=== PATIENT | female | born 1945 | race Caucasian/White ===

== ENCOUNTER → 2016-03-01 | Outpatient (CLI) | payer MEDICARE ==
--- NOTE | 2016-03-01 10:56 | CTL ---
EXAMINATION TYPE: CT Low Dose Lung DATE OF EXAM ORDERED: 03/01/2016 10:06 AM COMPARISON: None HISTORY: Long-term tobacco use. Lung cancer screening CT DLP: 52.[address] CTDI: 1.6 mGy Automated exposure control for dose reduction was used. SCREENING VISIT: Initial study COMPARISON: None TECHNIQUE: Low dose computed tomography scan was performed through the chest at 1 mm thick sections a nd reconstructed images in the coronal plane at [address] DIAGNOSTIC QUALITY: Satisfactory FINDINGS: LUNG NODULES: None. No greater than 4 mm noncalcified nodules. 3 mm calcified nodule periphery left u pper lobe is noted on axial image 49. Pleural-based curvilinear consolidation measuring 12 x 7 mm on axial image 187 favors focal atelectas is. LUNGS: COPD: Severity: Mild to moderate Fibrosis: Severity: Mild scattered areas of fibrosis most pronounced in the bases and apices are seen . Lymph nodes: No greater than 1 cm adenopathy is present. Other findings: No additional significant finding is seen. BILATERAL PLEURAL SPACE: Effusion: None Calcification: Some thin calcified plaques are seen in lung apices bilaterally Thickening: Mild to minimal biapical pleural thickening Pneumothorax: None HEART: Heart Size: Upper limits of normal Coronary calcification: Moderate three-vessel Pericardial effusion: None Great vessels: There is moderate calcified plaque most prominent in the ascending aorta. Ascending ao rta measures 3.3 x 3.1 cm diameter on axial image 114. Slight ectasia to the descending aorta is pres ent. Mild to moderate eccentric noncalcified plaque is likely present near image 218. Ascending aorta measures up to 3.1 cm in AP diameter at this level on image 218. OTHER FINDINGS: Upper abdomen: No significant findings seen. Bony thorax: Mild multilevel spurring in thoracic spine is noted. Supraclavicular region: No significant finding is seen. Other: No additional significant finding is noted. IMPRESSION: No suspicious parenchymal nodule or mass is identified. FOLLOW UP CT CHEST RECOMMENDATION: Annual low-dose lung screening CT. CT LUNG RAD: Lung-Rad 1 Negative
== END | disposition home or self-care (01) ==
LOC: RADCTMAIN 09:40
PROVIDERS: ATTEND Family Medicine
DX: Z12.2 Encounter for screening for malignant neoplasm of respiratory organs (principal); Z87.891 Personal history of nicotine dependence

== ENCOUNTER → 2017-02-18 | Outpatient (CLI) | payer MEDICARE ==
--- NOTE | 2017-02-22 09:14 | MM ---
Reason for exam: screening (asymptomatic). Last mammogram was performed 1 year and 1 month ago. History: Patient is postmenopausal and history of other cancer. Family history of breast cancer in paternal cousin and breast cancer in paternal cousin at age 50. Physical Findings: A clinical breast exam by your physician is recommended on an annual basis and results should be correlated with mammographic findings. MG 3D Screening Mammo W/Cad Bilateral CC and MLO view(s) were taken. Prior study comparison: February 03, 2016, bilateral MG 3d screening mammo w/cad. November 22, 2014, bilateral MG diagnostic mammo w CAD [facility]. The breast tissue is heterogeneously dense. This may lower the sensitivity of mammography. No suspicious abnormality. No significant changes when compared with prior studies. ASSESSMENT: Negative, BI-RAD 1 RECOMMENDATION: Routine screening mammogram of both breasts in 1 year.
== END | disposition home or self-care (01) ==
LOC: RADMAMWWP 16:43
PROVIDERS: ATTEND Obstetrics & Gynecology
DX: Z12.31 Encounter for screening mammogram for malignant neoplasm of breast (principal)
CPT/HCPCS: 77063; G0202

== ENCOUNTER → 2018-04-25 | Outpatient (CLI) | payer MEDICARE ==
--- NOTE | 2018-04-26 11:40 | MM ---
Reason for exam: screening (asymptomatic). Last mammogram was performed 1 year and 2 months ago. History: Patient is postmenopausal and history of other cancer. Family history of breast cancer in paternal cousin and breast cancer in paternal cousin at age 50. Physical Findings: A clinical breast exam by your physician is recommended on an annual basis and results should be correlated with mammographic findings. MG 3D Screening Mammo W/Cad Bilateral CC and MLO view(s) were taken. Prior study comparison: February 18, 2017, bilateral MG 3d screening mammo w/cad. February 03, 2016, bilateral MG 3d screening mammo w/cad. The breast tissue is heterogeneously dense. This may lower the sensitivity of mammography. Asymmetric breast tissue left subareolar position, stable. There is no discrete abnormality. ASSESSMENT: Negative, BI-RAD 1 RECOMMENDATION: Routine screening mammogram of both breasts in 1 year.
== END | disposition home or self-care (01) ==
LOC: RADMAMWWP 09:51
PROVIDERS: ATTEND Obstetrics & Gynecology
DX: Z12.31 Encounter for screening mammogram for malignant neoplasm of breast (principal); Z80.3 Family history of malignant neoplasm of breast
CPT/HCPCS: 77063; 77067

== ENCOUNTER → 2018-05-02 | Outpatient (CLI) | payer MEDICARE ==
--- NOTE | 2018-05-02 15:15 | BD ---
EXAMINATION TYPE: Axial Bone Density DATE OF EXAM: 05/02/2018 CLINICAL HISTORY: Height: 60.5 Weight: 120 FRAX RISK QUESTIONS: Alcohol (3 or more units per day): no Family History (Parent hip fracture): no Glucocorticoids (More than 3mos): no (Ex: prednisone, prednisolone, methylprednisolone, dexamethasone, and hydrocortisone). History of Fracture in Adulthood: no Secondary Osteoporosis: 1. Type 1 Diabetes: no 2. Hyperthyroidism: no 3. Menopause before 45: no 4. Malnutrition: no 5. Chronic liver disease: no Rheumatoid Arthritis: no Current Tobacco Use: yes RISK FACTORS HISTORY OF: Family History of Osteoporosis: not that patient is aware Active: no Diet low in dairy products/other sources of calcium: no Postmenopausal woman: yes Take estrogen and/or progesterone medications: no Lost more than 2 inches in height since high school: no Frequent falls: no Poor Health: no Hyperparathyroidism: no Adrenal Insufficiency: no MEDICATIONS: Thyroid Medications: no Osteoporosis Medications: no Additional Medications: cholesterol meds Additional History: EXAM MEASUREMENTS: Bone mineral densitometry was performed using the Etable System. Bone mineral density as measured about the Lumbar spine is: ----- L1-L4(G/cm2): 1.003 T Score Values are as follows: ----- L2: -2.0 ----- L3: -1.2 ----- L4: -0.8 ----- L1-L4: -1.5 Bone mineral density not previously done at this facility; previously done at physician office Bone mineral density about the R hip (g/cm2): 0.739 Bone mineral density about the L hip (g/cm2): 0.689 T Score values are as follows: -----R Neck: -2.2 -----L Neck: -2.5 -----R Total: -2.1 -----L Total: -2.2 Bone mineral density not previously done at this facility; previously done at physician office IMPRESSION: Osteopenia about the lumbar spine and bilateral femoral. NOTE: T-SCORE=SD OF THE YOUNG ADULT MEAN.
== END | disposition home or self-care (01) ==
LOC: RADBDWWP 13:14
PROVIDERS: ATTEND Family Medicine
DX: M85.852 Other specified disorders of bone density and structure, left thigh (principal); M85.851 Other specified disorders of bone density and structure, right thigh; M85.88 Other specified disorders of bone density and structure, other site
CPT/HCPCS: 77080

== ENCOUNTER → 2018-05-22 | Outpatient (CLI) | payer MEDICARE ==
--- NOTE | 2018-05-22 13:07 | CTL ---
EXAMINATION TYPE: CT Low Dose Lung DATE OF EXAM ORDERED: 05/22/2018 HISTORY: Personal history tobacco use. Lung cancer screening CT DLP: [address] CTDI: 1.88 mGy Automated exposure control for dose reduction was used. SCREENING VISIT: 2 COMPARISON: Prior exam 03/01/2016 TECHNIQUE: Low dose computed tomography scan was performed through the chest at 1 mm thick sections a nd reconstructed images in the coronal plane at [address] DIAGNOSTIC QUALITY: Satisfactory FINDINGS: LUNG NODULES: Present. Stable calcified subpleural left upper lobe nodule LUNGS: COPD: Severity: Moderate Fibrosis: Severity: Mild stable Lymph nodes: Not enlarged Other findings: None RIGHT PLEURAL SPACE: Effusion: None Calcification: None Thickening: None Pneumothorax: None LEFT PLEURAL SPACE: Effusion: None Calcification: None Thickening: None Pneumothorax: None HEART: Heart Size: Normal Coronary calcification: Present, mild Pericardial effusion: None OTHER FINDINGS: Upper abdomen: Unremarkable Bony thorax: Stable Supraclavicular region: Unremarkable Other: Aortic calcification is present similar to prior exam IMPRESSION: Stable, benign FOLLOW UP CT CHEST RECOMMENDATION: [address] LUNG RAD: 2
== END | disposition home or self-care (01) ==
LOC: RADCTMAIN 12:27
PROVIDERS: ATTEND Family Medicine
DX: Z12.2 Encounter for screening for malignant neoplasm of respiratory organs (principal); Z87.891 Personal history of nicotine dependence

== ENCOUNTER → 2018-07-06 | Outpatient (CLI) | payer MEDICARE ==
[2018-07-06 08:43] LABS: Basophils # (A) 0.1 k/uL (0-0.2); Basophils % (A) 1 %; Eosinophils # (A) 0.1 k/uL (0-0.7); Eosinophils % (A) 2 %; HCT 47.5 % (34.0-46.0); HGB 15.3 gm/dL (11.4-16.0); Lymphocytes # (A) 2.4 k/uL (1.0-4.8); Lymphocytes % (A) 36 %; MCH 30.5 pg (25.0-35.0); MCHC 32.3 g/dL (31.0-37.0); MCV 94.5 fL (80.0-100.0); Mean Platelet Volume 8.5; Monocytes # (A) 0.4 k/uL (0-1.0); Monocytes % (A) 7 %; Neutrophils # (A) 3.6 k/uL (1.3-7.7); Neutrophils % (A) 53 %; Platelet Count 230 k/uL (150-450); RBC 5.03 m/uL (3.80-5.40); RDW 12.4 % (11.5-15.5); WBC 6.9 k/uL (3.8-10.6)
[2018-07-06 16:41] LABS: Albumin 4.4 g/dL (3.80-4.90); Albumin/Globulin Ratio 2.59 (1.60-3.17); Anion Gap 5.3 mmol/L (4.00-12.00); Calcium 9.4 mg/dL (8.7-10.3); Carbon Dioxide 28.7 mmol/L (21.6-31.8); Globulin 1.7 g/dL (1.6-3.3); Potassium 4.4 mmol/L (3.5-5.5); Total Bilirubin 0.8 mg/dL (0.3-1.2); Total Protein 6.1 g/dL (6.2-8.2)
[2018-07-06 16:50] LABS: T4, Free (Free Thyroxine) 1.1 ng/dL (0.80-1.80)
== END | disposition home or self-care (01) ==
LOC: LABWHC1 08:06
PROVIDERS: ATTEND Internal Medicine Cardiovascular Disease
DX: Z00.00 Encounter for general adult medical examination without abnormal findings (principal); G58.9 Mononeuropathy, unspecified; Z79.899 Other long term (current) drug therapy; I20.9 Angina pectoris, unspecified
CPT/HCPCS: 36415; 80053; 83704; 84439; 84443; 85025

== ENCOUNTER 2019-03-23 18:00 | Emergency (ER) | payer MEDICARE ==
[2019-03-23 18:07] VITALS: TEMP 97.9
[2019-03-23] MEDS ORDERED: SODIUM CHLORIDE 0.9% 1,000 ML IV STA (18:09)
[2019-03-23] MEDS ORDERED: MORPHINE SULFATE 4 MG/ML SYRINGE IV STA (18:09)
--- NOTE | 2019-03-23 18:14 | ED ---
Back Pain HPI - General Chief Complaint: Back Pain/Injury Stated Complaint: Back pain Time Seen by Provider: 03/23/19 18:09 Source: patient, RN notes reviewed, old records reviewed Limitations: no limitations - History of Present Illness Initial Comments: This is a 74-year-old female to the ER for evaluation patient is still complaining of of bowel pain and back pain. Possible history of abdominal aneurysm patient is unsure. Otherwise no falls no complaints no injuries. No neurological complaints no loss of bowel or bladder no weakness in legs. Patient has pain in her back is getting progressively worse for a few weeks now despite of adjustment in medication patient is still having pain MD Complaint: back pain -: days(s) Similar Symptoms Previously: Yes Place: home Radiation: none Severity: moderate Severity scale (1-10): 6 Quality: dull, aching Consistency: constant Improves With: none Worsens With: none Associated Symptoms: denies other symptoms - Related Data Home Medications Medication Instructions Recorded Confirmed Atorvastatin [Lipitor] 40 mg PO QAM 10/07/17 10/07/17 Cephalexin [Keflex] 500 mg PO TID 10/07/17 10/07/17 Eszopiclone [Lunesta] 3 mg PO HS 10/07/17 10/07/17 Ezetimibe [Zetia] 10 mg PO QAM 10/07/17 10/07/17 Ranitidine HCl [Zantac] 150 mg PO QAM 10/07/17 10/07/17 Allergies Allergy/AdvReac Type Severity Reaction Status Date / Time Sulfa (Sulfonamide Allergy eyes get Verified 03/23/19 18:07 Antibiotics) red and ithcy Review of Systems ROS Statement: Those systems with pertinent positive or pertinent negative responses have been documented in the HPI. ROS Other: All systems not noted in ROS Statement are negative. Past Medical History Past Medical History: GERD/Reflux, Hyperlipidemia History of Any Multi-Drug Resistant Organisms: None Reported Past Surgical History: Section, Hysterectomy Past Anesthesia/Blood Transfusion Reactions: No Reported Reaction Past Psychological History: No Psychological Hx Reported Smoking Status: Current every day smoker Past Alcohol Use History: None Reported Past Drug Use History: None Reported - Past Family History Father Family Medical History: Cancer Additional Family Medical History / Comment(s): pancreatic General Exam Limitations: no limitations General appearance: alert, in no apparent distress Head exam: Present: atraumatic, normocephalic, normal inspection Eye exam: Present: normal appearance, PERRL, EOMI. Absent: scleral icterus, conjunctival injection, periorbital swelling ENT exam: Present: normal exam, mucous membranes moist Neck exam: Present: normal inspection. Absent: tenderness, meningismus, lymphadenopathy Respiratory exam: Present: normal lung sounds bilaterally. Absent: respiratory distress, wheezes, rales, rhonchi, stridor Cardiovascular Exam: Present: regular rate, normal rhythm, normal heart sounds. Absent: systolic murmur, diastolic murmur, rubs, gallop, clicks GI/Abdominal exam: Present: soft, normal bowel sounds. Absent: distended, tenderness, guarding, rebound, rigid Extremities exam: Present: normal inspection, full ROM, normal capillary refill. Absent: tenderness, pedal edema, joint swelling, calf tenderness Back exam: Present: normal inspection Neurological exam: Present: alert, oriented X3, CN II-XII intact Psychiatric exam: Present: normal affect, normal mood Skin exam: Present: warm, dry, intact, normal color. Absent: rash Course Vital Signs 03/23/19 03/23/19 18:03 20:59 Temperature 97.9 F Pulse Rate 89 71 Respiratory 20 18 Rate Blood Pressure 152/77 138/64 O2 Sat by Pulse 99 95 Oximetry - Reevaluation(s) Reevaluation #1: 03/23/19 19:39 Medical records reviewed Medical Decision Making - Medical Decision Making 74 female here with chronic back pain. Acute on chronic back pain CTA shows no significant changes no significant aneurysm. Patient can be discharged home - Lab Data Result diagrams: 03/23/19 18:19 03/23/19 18:19 Lab Results 03/23/19 03/23/19 03/23/19 Range/Units 18:19 18:19 18:19 WBC 11.3 H (3.8-10.6) k/uL RBC 5.06 (3.80-5.40) m/uL Hgb 15.9 (11.4-16.0) gm/dL Hct 47.9 H (34.0-46.0) % MCV 94.7 (80.0-100.0) fL MCH 31.4 (25.0-35.0) pg MCHC 33.1 (31.0-37.0) g/dL RDW 12.2 (11.5-15.5) % Plt Count 225 (150-450) k/uL Neutrophils % 59 % Lymphocytes % 29 % Monocytes % 7 % Eosinophils % 1 % Basophils % 1 % Neutrophils # 6.6 (1.3-7.7) k/uL Lymphocytes # 3.3 (1.0-4.8) k/uL Monocytes # 0.8 (0-1.0) k/uL Eosinophils # 0.1 (0-0.7) k/uL Basophils # 0.1 (0-0.2) k/uL PT (9.0-12.0) sec INR (<1.2) APTT (22.0-30.0) sec Sodium 138 (137-145) mmol/L Potassium 4.0 (3.5-5.1) mmol/L Chloride 105 (98-107) mmol/L Carbon Dioxide 25 (22-30) mmol/L Anion Gap 8 mmol/L BUN 14 (7-17) mg/dL Creatinine 0.54 (0.52-1.04) mg/dL Est GFR (CKD-EPI)AfAm >90 (>60 ml/min/1.73 sqM) Est GFR (CKD-EPI)NonAf >90 (>60 ml/min/1.73 sqM) Glucose 121 H (74-99) mg/dL Plasma Lactic Acid Boyd 1.3 (0.7-2.0) mmol/L Calcium 10.0 (8.4-10.2) mg/dL Phosphorus 3.6 (2.5-4.5) mg/dL Magnesium 1.9 (1.6-2.3) mg/dL Total Bilirubin 0.7 (0.2-1.3) mg/dL AST 31 (14-36) U/L ALT 28 (4-34) U/L Alkaline Phosphatase 65 (38-126) U/L Troponin I (0.000-0.034) ng/mL Total Protein 7.7 (6.3-8.2) g/dL Albumin 4.7 (3.5-5.0) g/dL Urine Color Urine Appearance (Clear) Urine pH (5.0-8.0) Ur Specific Alva (1.001-1.035) Urine Protein (Negative) Urine Glucose (UA) (Negative) Urine Ketones (Negative) Urine Blood (Negative) Urine Nitrite (Negative) Urine Bilirubin (Negative) Urine Urobilinogen (<2.0) mg/dL Ur Leukocyte Esterase (Negative) 03/23/19 03/23/19 03/23/19 Range/Units 18:19 18:19 18:19 WBC (3.8-10.6) k/uL RBC (3.80-5.40) m/uL Hgb (11.4-16.0) gm/dL Hct (34.0-46.0) % MCV (80.0-100.0) fL MCH (25.0-35.0) pg MCHC (31.0-37.0) g/dL RDW (11.5-15.5) % Plt Count (150-450) k/uL Neutrophils % % Lymphocytes % % Monocytes % % Eosinophils % % Basophils % % Neutrophils # (1.3-7.7) k/uL Lymphocytes # (1.0-4.8) k/uL Monocytes # (0-1.0) k/uL Eosinophils # (0-0.7) k/uL Basophils # (0-0.2) k/uL PT 9.4 (9.0-12.0) sec INR 0.9 (<1.2) APTT 22.0 (22.0-30.0) sec Sodium (137-145) mmol/L Potassium (3.5-5.1) mmol/L Chloride (98-107) mmol/L Carbon Dioxide (22-30) mmol/L Anion Gap mmol/L BUN (7-17) mg/dL Creatinine (0.52-1.04) mg/dL Est GFR (CKD-EPI)AfAm (>60 ml/min/1.73 sqM) Est GFR (CKD-EPI)NonAf (>60 ml/min/1.73 sqM) Glucose (74-99) mg/dL Plasma Lactic Acid Boyd (0.7-2.0) mmol/L Calcium (8.4-10.2) mg/dL Phosphorus (2.5-4.5) mg/dL Magnesium (1.6-2.3) mg/dL Total Bilirubin (0.2-1.3) mg/dL AST (14-36) U/L ALT (4-34) U/L Alkaline Phosphatase (38-126) U/L Troponin I <0.012 (0.000-0.034) ng/mL Total Protein (6.3-8.2) g/dL Albumin (3.5-5.0) g/dL Urine Color Light Yellow Urine Appearance Clear (Clear) Urine pH 5.5 (5.0-8.0) Ur Specific Alva 1.011 (1.001-1.035) Urine Protein Negative (Negative) Urine Glucose (UA) Negative (Negative) Urine Ketones Negative (Negative) Urine Blood Negative (Negative) Urine Nitrite Negative (Negative) Urine Bilirubin Negative (Negative) Urine Urobilinogen <2.0 (<2.0) mg/dL Ur Leukocyte Esterase Negative (Negative) - EKG Data -: EKG Interpreted by Me (EKG shows sinus rhythm rate of 84, NC 124, QRS 78, QTC 425) - Radiology Data Radiology results: report reviewed (CTA abdomen and pelvis negative for si gnificant abdominal aortic aneurysm), image reviewed Disposition Clinical Impression: Mechanical back pain, Strain of lumbar region Disposition: HOME SELF-CARE Condition: Good Instructions (If sedation given, give patient instructions): Acute Low Back Pain (ED) Is patient prescribed a controlled substance at d/c from ED?: No Referrals: Rancho Fonseca MD [Primary Care Provider] - 1-2 days
[2019-03-23 18:33] LABS: Basophils # (A) 0.1 k/uL (0-0.2); Basophils % (A) 1 %; Eosinophils # (A) 0.1 k/uL (0-0.7); Eosinophils % (A) 1 %; HCT 47.9 % (34.0-46.0); HGB 15.9 gm/dL (11.4-16.0); Lymphocytes # (A) 3.3 k/uL (1.0-4.8); Lymphocytes % (A) 29 %; MCH 31.4 pg (25.0-35.0); MCHC 33.1 g/dL (31.0-37.0); MCV 94.7 fL (80.0-100.0); Mean Platelet Volume 9.6; Monocytes # (A) 0.8 k/uL (0-1.0); Monocytes % (A) 7 %; Neutrophils # (A) 6.6 k/uL (1.3-7.7); Neutrophils % (A) 59 %; Platelet Count 225 k/uL (150-450); RBC 5.06 m/uL (3.80-5.40); RDW 12.2 % (11.5-15.5); WBC 11.3 k/uL (3.8-10.6)
[2019-03-23 18:47] LABS: ALT 28 U/L (4-34); AST 31 U/L (14-36); African American GFR (CKD) >90 (>60 ml/min/1.73 sqM); Albumin 4.7 g/dL (3.5-5.0); Alkaline Phosphatase 65 U/L (38-126); Anion Gap 8 mmol/L; Blood Urea Nitrogen 14 mg/dL (7-17); Carbon Dioxide 25 mmol/L (22-30); Chloride 105 mmol/L (98-107); Glucose 121 mg/dL (74-99); Magnesium 1.9 mg/dL (1.6-2.3); Non-African American GFR(CKD) >90 (>60 ml/min/1.73 sqM); Phosphorus 3.6 mg/dL (2.5-4.5); Sodium 138 mmol/L (137-145); Total Bilirubin 0.7 mg/dL (0.2-1.3); Total Protein 7.7 g/dL (6.3-8.2)
[2019-03-23 18:50] LABS: INR 0.9 (<1.2); Prothrombin Time 9.4 sec (9.0-12.0)
[2019-03-23 19:31] LABS: Appearance,Urine Clear (Clear); Bilirubin,Urine Negative (Negative); Blood,Urine Negative (Negative); Color,Urine Light Yellow; Glucose,Urine (UA) Negative (Negative); Ketones,Urine Negative (Negative); Leukocyte Esterase,Urine Negative (Negative); Nitrite,Urine Negative (Negative); PH, Urine 5.5 (5.0-8.0); Protein,Urine Negative (Negative); Specific Gravity,Urine 1.011 (1.001-1.035); Urobilinogen,Urine <2.0 mg/dL (<2.0)
[2019-03-23 21:00] VITALS: BP 138/64; PULSE 71; RESP 18
--- NOTE | 2019-03-23 21:13 | CT ---
EXAMINATION TYPE: CT angio abdomen pelvis DATE OF EXAM: 03/23/2019 COMPARISON: None HISTORY: c/o posterior chest pain CT DLP: 924.1 mGycm Automated exposure control for dose reduction was used. CONTRAST: Performed with IV Contrast, patient injected with 100 mL of Isovue 370. Multiple axial sections were obtained from the diaphragm to the floor the pelvis without and subseque ntly with intravenous contrast. There are 3-D post processed images. Abdominal aorta is atheromatous. There is 3.2 cm aneurysm of the mid abdominal aorta is below the sushma al arteries. There is no evidence of dissection. There is arterial flow in the celiac artery and supe rior mesenteric artery. There is arterial flow in both renal arteries. There is arterial flow in the iliac and femoral arteries bilaterally. There is variable atherosclerotic plaque formation with 50% s tenosis in the proximal celiac artery. I see no evidence of hemodynamic stenosis of the renal arterie s. There is iliac artery plaque formation and 25% stenosis. Heart size is normal. Lung bases are clear of consolidation. There is irregular plaque formation on t he anterior wall of the upper abdominal aorta. Stomach spleen pancreas gallbladder appear normal. Eneida er is intact. There is no adrenal mass. Kidneys show satisfactory contrast opacification. There is no hydronephrosi s. There is no retroperitoneal adenopathy. Appendix is short and appears normal. There are extensive diverticula in the sigmoid colon. There is no sign of diverticulitis. Bladder distends smoothly. Ther e is no inguinal hernia. There is hysterectomy. There is no evidence of a pelvic mass. Lumbar spine i s intact. Bony pelvis is intact. IMPRESSION: Atherosclerotic vascular disease. Mild aneurysm of the abdominal aorta. No evidence of dissection. Ex tensive sigmoid diverticulosis.
== END 2019-03-23 21:51 | disposition home or self-care (01) ==
LOC: EC 18:00
DX: S39.012A Strain of muscle, fascia and tendon of lower back, initial encounter (principal); G89.29 Other chronic pain; E78.5 Hyperlipidemia, unspecified; K21.9 Gastro-esophageal reflux disease without esophagitis; F17.200 Nicotine dependence, unspecified, uncomplicated; Z79.899 Other long term (current) drug therapy; Z88.2 Allergy status to sulfonamides; X58.XXXA Exposure to other specified factors, initial encounter
CPT/HCPCS: 99284 ×2; 96374 ×2; 96361 ×2; 36415; 93005; 80053; 83605; 83735; 84100; 84484; 85025; 85610; 85730; 81003; 74174; J2270; Q9967

== ENCOUNTER → 2019-04-04 | Outpatient (CLI) | payer MEDICARE ==
--- NOTE | 2019-04-04 15:16 | XR ---
EXAMINATION TYPE: XR lumbar spine 2 or 3V DATE OF EXAM: 04/04/2019 CLINICAL HISTORY: Left-sided sacroiliac and back pain TECHNIQUE: Frontal and lateral images of the lumbar spine are obtained. COMPARISON: None FINDINGS: . Mild dextroscoliosis of the lumbar spine is seen. There are 5 lumbar type vertebral maxwell s identified. The lumbar spine shows satisfactory alignment without evidence of acute fracture or di slocation. Vertebral body heights are within normal limits. Mild multilevel facet arthropathy and int ervertebral disc space narrowing at L5-S1 with small marginal osteophytes throughout are seen. Diffus e osseous demineralization. The overlying soft tissue appears unremarkable. Extensive atherosclerosis of the abdominal aorta and its branches. The heavily calcified aorta is also enlarged in anterior po sterior dimension measuring 3.2 cm, aneurysmal. IMPRESSION: 1. 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 2. No acute fracture or malalignment is seen in the lumbar spine. 3. Overall mild degenerative changes of the lumbar spine although more moderate at L5-S1. 4. Dextroscoliosis of the lumbar spine. 5. Diffuse osseous demineralization.
== END | disposition home or self-care (01) ==
LOC: RADXRMAIN 14:18
PROVIDERS: ATTEND Family Medicine
DX: M47.27 Other spondylosis with radiculopathy, lumbosacral region (principal); M41.86 Other forms of scoliosis, lumbar region
CPT/HCPCS: 72100

== ENCOUNTER 2019-07-18 09:37 | Emergency (ER) | payer MEDICARE ==
[2019-07-18 09:49] VITALS: BP 145/65; PULSE 79; RESP 18; TEMP 97.9
[2019-07-18] MEDS ORDERED: methylPREDNISolone SOD SUCCI 125 MG/2 ML VIAL IM ONE (10:06)
--- NOTE | 2019-07-18 10:08 | ED ---
Allergic Reaction HPI - General Chief complaint: Allergic Reaction Stated complaint: Allergic reaction/stung by wasp Time Seen by Provider: 07/18/19 09:50 Source: patient Mode of arrival: ambulatory Limitations: no limitations - History of Present Illness Initial Comments: Patient is 74-year-old female presenting to the emergency Department with complaints of a possible ALLERGIC reaction to a wasp sting. Patient states yesterday she was stung in the left side of her neck by a wasp. She states she is ALLERGIC to last and is concerned that the swelling may get worse since it is on her neck. She denies any difficulty in breathing, chest pain, shortness of breath. She states she took some Benadryl last night before bedtime. She states the pain is minimal. She states she did call her PCP as he used to carry an EpiPen but no longer has one. Patient denies fever or chills. She has no other complaints at this time. Upon arrival to the ER, her vital signs are stable. - Related Data Home Medications Medication Instructions Recorded Confirmed Atorvastatin [Lipitor] 40 mg PO QAM 10/07/17 10/07/17 Cephalexin [Keflex] 500 mg PO TID 10/07/17 10/07/17 Eszopiclone [Lunesta] 3 mg PO HS 10/07/17 10/07/17 Ezetimibe [Zetia] 10 mg PO QAM 10/07/17 10/07/17 Ranitidine HCl [Zantac] 150 mg PO QAM 10/07/17 10/07/17 Previous Rx's Medication Instructions Recorded predniSONE 10 mg PO BID 3 Days #6 tab 07/18/19 Allergies Allergy/AdvReac Type Severity Reaction Status Date / Time Sulfa (Sulfonamide Allergy eyes get Verified 07/18/19 09:49 Antibiotics) red and ithcy Review of Systems ROS Statement: Those systems with pertinent positive or pertinent negative responses have been documented in the HPI. ROS Other: All systems not noted in ROS Statement are negative. Past Medical History Past Medical History: GERD/Reflux, Hyperlipidemia History of Any Multi-Drug Resistant Organisms: None Reported Past Surgical History: Section, Hysterectomy Past Anesthesia/Blood Transfusion Reactions: No Reported Reaction Past Psychological History: No Psychological Hx Reported Smoking Status: Current every day smoker Past Alcohol Use History: None Reported Past Drug Use History: None Reported - Past Family History Father Family Medical History: Cancer Additional Family Medical History / Comment(s): pancreatic General Exam - General Exam Comments Initial Comments: GENERAL: Well-appearing, well-nourished and in no acute distress. HEAD: Atraumatic, normocephalic. EYES: Pupils equal round and reactive to light, extraocular movements intact, sclera anicteric, conjunctiva are normal. ENT: TMs normal, nares patent, oropharynx clear without exudates. Moist mucous membranes. NECK: Normal range of motion, supple without lymphadenopathy or JVD. Patient has a small erythematous area on the left side of her neck with a central puncture lesion consistent with a wasp sting. LUNGS: Breath sounds clear to auscultation bilaterally and equal. No wheezes rales or rhonchi. HEART: Regular rate and rhythm without murmurs, rubs or gallops. ABDOMEN: Soft, nontender, normoactive bowel sounds. No guarding, no rebound. No masses appreciated. : Deferred EXTREMITIES: Normal range of motion, no pitting or edema. No clubbing or cyanosis. NEUROLOGICAL: Cranial nerves II through XII grossly intact. Normal speech, normal gait. PSYCH: Normal mood, normal affect. SKIN: Warm, Dry, normal turgor, no rashes or lesions noted. Limitations: no limitations Course Vital Signs 07/18/19 09:45 Temperature 97.9 F Pulse Rate 79 Respiratory 18 Rate Blood Pressure 145/65 O2 Sat by Pulse 97 Oximetry Medical Decision Making - Medical Decision Making Patient is a 74-year-old female presenting with a wasp sting on the left side of her neck that happened yesterday. Patient is only having mild local reactions. No shortness of breath, no cough, no chest pain, no fever. Patient was highly concerned that it is on her neck. She did take a Benadryl last night. Patient was given 125 is all Medrol the ER. She is also given a prescription for prednisone to use start tomorrow as needed for increase in symptoms. She will also take Benadryl at night as needed for itchiness. She is in agreement with this plan of care. She will follow-up with her PCP. Strict return parameters were discussed with the patient she verbalized understanding. Case discussed with Dr. Vieira. Disposition Clinical Impression: Wasp sting Disposition: HOME SELF-CARE Condition: Stable Instructions (If sedation given, give patient instructions): Insect Bite or Sting (ED) Additional Instructions: Please return to the Emergency Department if symptoms worsen or any other concerns. Follow-up with PCP. May continue with steroids tomorrow if symptoms persist. Prescriptions: predniSONE 10 mg PO BID 3 Days #6 tab Is patient prescribed a controlled substance at d/c from ED?: No Referrals: Rancho Fonseca MD [Primary Care Provider] - 1-2 days
== END 2019-07-18 10:30 | disposition home or self-care (01) ==
LOC: EC 09:37
DX: T63.461A Toxic effect of venom of wasps, accidental (unintentional), initial encounter (principal); K21.9 Gastro-esophageal reflux disease without esophagitis; E78.5 Hyperlipidemia, unspecified; F17.200 Nicotine dependence, unspecified, uncomplicated; Z88.2 Allergy status to sulfonamides; Z79.899 Other long term (current) drug therapy
CPT/HCPCS: 99283; 96372; J2930

== ENCOUNTER → 2019-08-21 | Outpatient (CLI) | payer MEDICARE ==
--- NOTE | 2019-08-21 13:21 | CTL ---
EXAMINATION TYPE: CT Low Dose Lung DATE OF EXAM ORDERED: 08/21/2019 HISTORY: 74-year-old female Personal history of tobacco use. Lung cancer screening CT DLP: 66.[address] CTDI: 1.8 mGy Automated exposure control for dose reduction was used. SCREENING VISIT: Annual follow-up COMPARISON: 05/22/2018 TECHNIQUE: Low dose computed tomography scan was performed through the chest at 1 mm thick sections a nd reconstructed images in the coronal and sagittal plane. CT DIAGNOSTIC QUALITY: Satisfactory FINDINGS: Heart normal size without pericardial effusion. Three-vessel coronary artery calcifications are prese nt. Scattered moderate atherosclerotic calcification throughout the thoracic aorta. Conventional arterial vessel branching anatomy. There is mild fusiform aneurysm lower descending thoracic aorta at 3.0 cm. No thoracic lymphadenopathy by CT size criteria. Biapical pleural parenchymal scarring. Some pleural calcification at the right greater than left apic es. Stable 3 mm calcified subpleural pulmonary nodule lateral left upper lobe, axial image 54. Moderate centrilobular emphysema. Strandy atelectasis in the lower lungs. No consolidation or pleural effusion. Moderate atherosclerotic calcifications within the visualized abdominal aorta. Otherwise, the visuali zed upper abdomen abdomen shows no gross abnormality. Bones: No osseous destructive process. IMPRESSION: 1. LungRADS 2 - benign; unchanged calcified pulmonary nodule at the left apex. 2. COPD with moderate upper lung emphysema. 3. Coronary artery disease with three-vessel coronary artery calcifications. 4. Stable mild fusiform aneurysm lower descending thoracic aorta at 3.0 cm. RECOMMENDATION: 1. Continue annual low-dose lung cancer screening CT. 2. Smoking cessation. FOLLOW UP CT CHEST RECOMMENDATION: [address] LUNG RAD: Lung-Rad 2 Benign Appearance or Behavior
== END | disposition home or self-care (01) ==
LOC: RADCTMAIN 11:54
PROVIDERS: ATTEND Family Medicine
DX: Z12.2 Encounter for screening for malignant neoplasm of respiratory organs (principal); R91.1 Solitary pulmonary nodule; J43.9 Emphysema, unspecified; I25.10 Atherosclerotic heart disease of native coronary artery without angina pectoris; I71.9 Aortic aneurysm of unspecified site, without rupture; F17.210 Nicotine dependence, cigarettes, uncomplicated

== ENCOUNTER → 2019-11-12 | Outpatient (CLI) | payer MEDICARE ==
--- NOTE | 2019-11-14 09:38 | MM ---
Reason for exam: screening (asymptomatic). Last mammogram was performed 1 year and 7 months ago. History: Patient is postmenopausal and history of other cancer. Family history of breast cancer in paternal cousin and breast cancer in paternal cousin at age 50. Physical Findings: A clinical breast exam by your physician is recommended on an annual basis and results should be correlated with mammographic findings. MG 3D Screening Mammo W/Cad Bilateral CC and MLO view(s) were taken. Prior study comparison: April 25, 2018, bilateral MG 3d screening mammo w/cad. February 18, 2017, bilateral MG 3d screening mammo w/cad. The breast tissue is extremely dense which could obscure a lesion on mammography. No significant changes when compared with prior studies. ASSESSMENT: Benign, BI-RAD 2 RECOMMENDATION: Routine screening mammogram of both breasts in 1 year.
== END | disposition home or self-care (01) ==
LOC: RADMAMWWP 11:49
PROVIDERS: ATTEND Family Medicine
DX: Z12.31 Encounter for screening mammogram for malignant neoplasm of breast (principal)
CPT/HCPCS: 77063; 77067

== ENCOUNTER → 2020-11-12 | Outpatient (CLI) | payer MEDICARE ==
--- NOTE | 2020-11-12 21:10 | BD ---
EXAMINATION TYPE: Axial Bone Density DATE OF EXAM: 11/12/2020 COMPARISON: 2019 CLINICAL HISTORY: Postmenopausal screening Height: 61 Weight: 121.5 FRAX RISK QUESTIONS: Alcohol (3 or more units per day): no Family History (Parent hip fracture): no Glucocorticoids (More than 3mos): no (Ex: prednisone, prednisolone, methylprednisolone, dexamethasone, and hydrocortisone). History of Fracture in Adulthood: no Secondary Osteoporosis: 1. Type 1 Diabetes: no 2. Hyperthyroidism: no 3. Menopause before 45: no 4. Malnutrition: no 5. Chronic liver disease: no Rheumatoid Arthritis: no Current Tobacco Use: yes RISK FACTORS HISTORY OF: Surgery to Spine/Hip(right/left)/Wrist (right/left): no Family History of Osteoporosis: no Active: yes Diet low in dairy products/other sources of calcium: no Postmenopausal woman: yes Lost more than 2 inches in height since high school: no MEDICATIONS: Lunesta, cholesterol meds Additional History: EXAM MEASUREMENTS: Bone mineral densitometry was performed using the [employer] System. Bone mineral density as measured about the Lumbar spine is: ----- L1-L4(G/cm2): 0.957 T Score Values are as follows: ----- L2: -2.2 ----- L3: -1.4 ----- L4: -1.6 ----- L1-L4: -1.9 Bone mineral density has: decreased -4.9 % since study of: 05.02.2018 Bone mineral density about the R hip (g/cm2): 0.703 Bone mineral density about the L hip (g/cm2): 0.695 T Score values are as follows: -----R Neck: -2.4 -----L Neck: -2.5 -----R Total: -2.3 -----L Total: -2.3 Bone mineral density has: decreased -2.7 % since study of: 05.02.2018 IMPRESSION: Osteoporosis (T Score less than -2.5). There is increased fracture risk and therapy is usually indicated based on age. Re-Screen 1-2 years. NOTE: T-SCORE=SD OF THE YOUNG ADULT MEAN.
== END | disposition home or self-care (01) ==
LOC: RADBDWWP 10:35
PROVIDERS: ATTEND Family Medicine
DX: Z13.820 Encounter for screening for osteoporosis (principal); M81.0 Age-related osteoporosis without current pathological fracture; Z78.0 Asymptomatic menopausal state
CPT/HCPCS: 77080

== ENCOUNTER → 2020-11-26 | Outpatient (CLI) | payer MEDICARE ==
--- NOTE | 2020-11-28 11:20 | MM ---
Reason for exam: screening (asymptomatic). Last mammogram was performed 1 year ago. History: Patient is postmenopausal and history of other cancer. Family history of breast cancer in paternal cousin and breast cancer in paternal cousin at age 50. Physical Findings: A clinical breast exam by your physician is recommended on an annual basis and results should be correlated with mammographic findings. MG 3D Screening Mammo W/Cad Bilateral CC and MLO view(s) were taken. Prior study comparison: November 12, 2019, bilateral MG 3d screening mammo w/cad. April 25, 2018, bilateral MG 3d screening mammo w/cad. February 18, 2017, bilateral MG 3d screening mammo w/cad. The breast tissue is heterogeneously dense. This may lower the sensitivity of mammography. Multiple areas of asymmetric density are unchanged. No significant changes when compared with prior studies. ASSESSMENT: Benign, BI-RAD 2 RECOMMENDATION: Routine screening mammogram of both breasts in 1 year. Patient should continue monthly self breast exams. A negative report should not preclude additional follow up of suspicious palpable abnormalities.
== END | disposition home or self-care (01) ==
LOC: RADMAMWWP 13:53
PROVIDERS: ATTEND Family Medicine
DX: Z12.31 Encounter for screening mammogram for malignant neoplasm of breast (principal); Z80.3 Family history of malignant neoplasm of breast; Z78.0 Asymptomatic menopausal state
CPT/HCPCS: 77063; 77067

== ENCOUNTER → 2021-01-12 | Outpatient (CLI) | payer MEDICARE ==
--- NOTE | 2021-01-12 13:40 | CTL ---
EXAMINATION TYPE: CT Low Dose Lung DATE OF EXAM ORDERED: 01/12/2021 HISTORY: Long-term tobacco use. Lung cancer screening CT DLP: 47.[address] CTDI: 1.5 mGy Automated exposure control for dose reduction was used. SCREENING VISIT: Third after baseline COMPARISON: Prior studies 2017, 2018, and 2019 TECHNIQUE: Low dose computed tomography scan was performed through the chest at 1 mm thick sections a nd reconstructed images in multiple planes at 1 mm and [address] DIAGNOSTIC QUALITY: Satisfactory FINDINGS: LUNG NODULES: Present, detailed below: Stable 3 mm peripheral calcified nodule or granuloma left upper lobe axial image 47. LUNGS: COPD: Severity: Mild to moderate Fibrosis: Severity: Mild scattered Lymph nodes: No greater than 1 cm Other findings: None RIGHT PLEURAL SPACE: Effusion: None Calcification: None Thickening: None Pneumothorax: None LEFT PLEURAL SPACE: Effusion: None Calcification: None Thickening: None Pneumothorax: None HEART: Heart Size: Normal Coronary calcification: Moderate three-vessel Pericardial effusion: None OTHER FINDINGS: Upper abdomen: Non- Bony thorax: Mild multilevel spurring. Supraclavicular region: None Other: Stable 3.3 cm cylindrical type aneurysm of the distal descending thoracic aorta. IMPRESSION: No significant new greater than 6 mm noncalcified pulmonary nodules CT LUNG RAD AND CT CHEST RECOMMENDATION: Lung-Rad 2 Benign Appearance or Behavior: Continue annual sc reening with LDCT in 12 months. S Modifier (other clinically significant findings): None No new significant findings since most recent CT.
== END | disposition home or self-care (01) ==
LOC: RADCTMAIN 12:13
PROVIDERS: ATTEND Family Medicine
DX: Z12.2 Encounter for screening for malignant neoplasm of respiratory organs (principal); R91.8 Other nonspecific abnormal finding of lung field; J44.9 Chronic obstructive pulmonary disease, unspecified; J84.10 Pulmonary fibrosis, unspecified; Z87.891 Personal history of nicotine dependence
CPT/HCPCS: 71271

== ENCOUNTER → 2021-02-12 | Outpatient (CLI) | payer MEDICARE ==
--- NOTE | 2021-02-12 12:00 | US ---
EXAMINATION TYPE: US duplex aorta DATE OF EXAM: 02/12/2021 COMPARISON: CT 03/23/2019 CLINICAL HISTORY: 75-year-old female I71.4 Abdominal aortic aneurysm, without rupture. Patient states she had a recent x-ray that showed aneurysmal dilation. TECHNIQUE: Multiple sonographic images of the abdominal aorta are obtained. FINDINGS: EXAM MEASUREMENTS: Abdominal Aorta: Proximal: 2.3 x 1.8 cm Mid: 1.6 x 1.7 cm Distal: 2.8 x 3.0 cm Bifurcation: 0.8 x 0.8 cm (RT) and 0.7 x 0.8 cm (LT) Cadd Instructor notes: The aorta shows calcified plaque throughout as well as aneurysmal dilation at the distal level. See image 12 for dilation changes/measurements. Cadd Instructor notes: Per physician order, IVC and iliac veins were also imaged showing vargas-scale and c olor Doppler images at the level of bifurcation. Limited visualization of the IVC and Iliac veins due to calcific shadowing from the aorta. IMPRESSION: 1. Moderate atherosclerotic calcifications throughout. 2. A 3.0 cm distal AAA. Measurement on previous 1:30 03/12/2014 was 3.1 cm. Not significantly changed.
== END | disposition home or self-care (01) ==
LOC: RADUSWWP 08:11
PROVIDERS: ATTEND Family Medicine
DX: I71.4 Abdominal aortic aneurysm, without rupture (principal); I25.10 Atherosclerotic heart disease of native coronary artery without angina pectoris
CPT/HCPCS: 93979

== ENCOUNTER → 2021-12-10 | Outpatient (CLI) | payer MEDICARE ==
--- NOTE | 2021-12-11 09:42 | MM ---
Reason for Exam: Screening (asymptomatic). Last screening mammogram was performed 12 month(s) ago. Patient History: Menarche at age 14. First Full-Term at age 22. Left ovary removed at age 52. Right ovary removed at age 52. Hysterectomy at age 52. Postmenopausal. Other cancer. Paternal cousin had breast cancer. Paternal cousin had breast cancer, age 50. Risk Values: Shi 5 year model risk: 1.4%. NCI Lifetime model risk: 2.9%. Prior Study Comparison: 04/25/2018 Bilateral Screening Mammogram, [facility]. 11/12/2019 Bilateral Screening Mammogram, [facility]. 11/26/2020 Bilateral Screening Mammogram, [facility]. Tissue Density: The breast tissue is heterogeneously dense. This may lower the sensitivity of mammography. Findings: Analyzed By CAD. Chronic nodularity on the right. The configuration of the bilateral nodular breast tissue remains unchanged. No significant change from prior exams. Overall Assessment: Benign, BI-RAD 2 Management: Screening Mammogram of both breasts in 1 year. 1. Patient should continue monthly self breast exams. 2. A clinical breast exam by your physician is recommended on an annual basis. 3. This exam should not preclude additional follow-up of suspicious palpable abnormalities. Electronically signed and approved by: Angie Fontana M.D. Radiologist
== END | disposition home or self-care (01) ==
LOC: RADMAMWWP 14:33
PROVIDERS: ATTEND Family Medicine
DX: Z12.31 Encounter for screening mammogram for malignant neoplasm of breast (principal); Z78.0 Asymptomatic menopausal state; Z80.3 Family history of malignant neoplasm of breast
CPT/HCPCS: 77063; 77067

== ENCOUNTER → 2022-02-09 | Outpatient (CLI) | payer MEDICARE ==
--- NOTE | 2022-02-09 09:44 | US ---
EXAMINATION TYPE: US abdomen complete DATE OF EXAM: 02/09/2022 COMPARISON: CTA abdomen pelvis 03/23/2019. CLINICAL HISTORY: I71.40 ABDOMINAL AORTIC ANEURYSM, WITHOUT RUPTURE,. pain TECHNIQUE: Multiple sonographic images of the abdomen are obtained. FINDINGS: EXAM MEASUREMENTS: Liver Length: 10 cm Gallbladder Wall: .2 cm CBD: .5 cm Spleen: 8.1 cm Right Kidney: 10.7 x 4.0 x 5.0 cm Left Kidney: 10.5 x 4.7 x 4.6 cm LENDING CONSULTANT NOTES: Pancreas: wnl Liver: wnl Gallbladder: wnl Evidence for sonographic Vázquez's sign: No CBD: wnl Spleen: wnl Right Kidney: wnl Left Kidney: Hypoechoic area mid pole 1.7 x 1.1 x 1.6 cm representing a cyst or extrarenal pelvis. Upper IVC: wnl Abd Aorta: Small abdominal aorta measures 1.9 cm AP dimension. Mid abdominal aorta measures 2.3 cm A P dimension. And the distal abdominal aorta measures up to 1.5 cm AP dimension. Atelectatic calcifica tion of the abdominal aorta. The liver is homogenous. The intrahepatic portion of the IVC is within normal limits. Atheroscleroti c calcification of the aorta. There is no evidence of cholelithiasis. Common bile duct is unremarkab le. The visualized portions of the pancreas are homogenous. The spleen is unremarkable. Kidneys ar e symmetric and free of hydronephrosis. Left renal hypoechoic 1.7 cm lesion likely representing a cys t or extrarenal pelvis. IMPRESSION: 1. No acute abdominal process. 2. Ectasia of the abdominal aorta measuring up to 2.3 cm in AP dimension.
--- NOTE | 2022-02-09 11:17 | CTL ---
EXAMINATION TYPE: CT Low Dose Lung DATE OF EXAM ORDERED: 02/09/2022 COMPARISON: 01/12/2021 HISTORY: . Low Dose CT Lung Screening CT DLP: 56.[address] CTDI: 1.7 mGy IV CONTRAST USED: None. SCREENING VISIT: First visit COMPARISON: None. TECHNIQUE: Low dose computed tomography scan was performed through the chest at 1 millimeter thick se ctions and reconstructed images in the coronal plane at [address] DIAGNOSTIC QUALITY: Satisfactory FINDINGS: LUNG NODULES: Stable calcified granuloma left upper lobe. No concerning pulmonary nodules are evident . LUNGS: COPD: Severity: Mild Fibrosis: Severity:None Lymph nodes: None Other findings: None RIGHT PLEURAL SPACE: Effusion: None Calcification: None Thickening: None Pneumothorax: None LEFT PLEURAL SPACE: Effusion: None Calcification: None Thickening: None Pneumothorax: None HEART: Heart Size: Mildly enlarged Coronary calcification: Mild Pericardial effusion: None OTHER FINDINGS: Upper abdomen: No significant abnormality Bony thorax: Degenerative changes Supraclavicular region: No significant abnormalityOther: No significant abnormalityI IMPRESSION: Benign FOLLOW UP CT CHEST RECOMMENDATION: Follow-up screening in one year CT LUNG RAD: LUNG RAD CATEGORY 2 benign appearance or behavior
== END | disposition home or self-care (01) ==
LOC: RADUSWWP 08:59
PROVIDERS: ATTEND Family Medicine
DX: Z12.2 Encounter for screening for malignant neoplasm of respiratory organs (principal); I71.40 Abdominal aortic aneurysm, without rupture, unspecified; Z87.891 Personal history of nicotine dependence
CPT/HCPCS: 71271; 76700

== ENCOUNTER → 2023-01-24 | Outpatient (CLI) | payer MEDICARE ==
--- NOTE | 2023-01-24 20:26 | BD ---
EXAMINATION TYPE: Axial Bone Density DATE OF EXAM: 01/24/2023 CLINICAL HISTORY: 77 years old Female. 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 History of Fracture in Adulthood: no Secondary Osteoporosis: 1. Type 1 Diabetes: no 2. Hyperthyroidism: no 3. Menopause before 45: no 4. Malnutrition: no 5. Chronic liver disease: no Rheumatoid Arthritis: no Current Tobacco Use: yes RISK FACTORS HISTORY OF: Surgery to Spine/Hip(right/left)/Wrist (right/left): no Additional History: EXAM MEASUREMENTS: Bone mineral densitometry was performed using the [employer]. Bone mineral density as measured about the Lumbar spine is: ----- L1-L4(G/cm2): 0.961 T Score Values are as follows: ----- L1: -2.6 ----- L2: -2.1 ----- L3: -1.3 ----- L4: -1.6 ----- L1-L4: -1.8 Z Score Values are as follows: ----- L1: -0.5 ----- L2: 0.0 ----- L3: 0.8 ----- L4: 0.5 ----- L1-L4: 0.3 Bone mineral density has: increased 0.4 % since study of: 11.12.2020 Bone mineral density about the R hip (g/cm2): 0.705 Bone mineral density about the L hip (g/cm2): 0.706 T Score values are as follows: -----R Neck: -2.2 -----L Neck: -2.5 -----R Total: -2.4 -----L Total: -2.4 Z Score values are as follows: -----R Neck: 0.0 -----L Neck: -0.3 -----R Total: -0.3 -----L Total: -0.3 Bone mineral density has: decreased -1.0 % since study of: 9.22.2020 FRAX%s: The graph provided illustrates a 20.3% chance for a major osteoporotic fx and a 10.0% chance for the hips probability for fx in 10 years time. IMPRESSION: Osteoporosis (T Score less than -2.5). There is increased fracture risk and therapy is usually indicated based on age. Re-Screen 1-2 years. NOTE: T-SCORE=SD OF THE YOUNG ADULT MEAN.
--- NOTE | 2023-01-25 20:39 | MM ---
Reason for Exam: Screening (asymptomatic). Last mammogram was performed 1 year(s) and 2 month(s) ago. Patient History: Menarche at age 14. First Full-Term at age 22. Left ovary removed at age 52. Right ovary removed at age 52. Hysterectomy at age 52. Postmenopausal. Other cancer. Paternal cousin had breast cancer. Paternal cousin had breast cancer, age 50. Risk Values: Shi 5 year model risk: 1.4%. NCI Lifetime model risk: 2.7%. Prior Study Comparison: 11/12/2019 Bilateral Screening Mammogram, [facility]. 11/26/2020 Bilateral Screening Mammogram, [facility]. 12/10/2021 Bilateral MG 3D screening mammo w/cad, [facility]. Tissue Density: The breast tissue is heterogeneously dense. This may lower the sensitivity of mammography. Findings: Analyzed By CAD. Unchanged areas of bilateral asymmetric densities. There is no suspicious group of microcalcifications or new suspicious mass in either breast. Overall Assessment: Benign, BI-RAD 2 Management: Screening Mammogram of both breasts in 1 year. . Patient should continue monthly self-breast exams. A clinical breast exam by your physician is recommended on an annual basis. This exam should not preclude additional follow-up of suspicious palpable abnormalities. Note on Shi scores and lifetime risk: 1. A Shi score greater than 3% is considered moderate risk. If this is the case, consider specialist referral to assess eligibility for a risk reducing agent. 2. If overall lifetime risk for the development of breast cancer is 20% or higher, the patient may qualify for future screening with alternating mammogram and breast MRI. Electronically signed and approved by: Angie Fontana M.D. Radiologist
== END | disposition home or self-care (01) ==
LOC: RADMAMWWP 14:33
PROVIDERS: ATTEND Family Medicine
DX: Z12.31 Encounter for screening mammogram for malignant neoplasm of breast (principal); M81.0 Age-related osteoporosis without current pathological fracture; M85.89 Other specified disorders of bone density and structure, multiple sites; Z78.0 Asymptomatic menopausal state; Z80.3 Family history of malignant neoplasm of breast
CPT/HCPCS: 77063; 77067; 77080

== ENCOUNTER → 2023-02-10 | Outpatient (CLI) | payer MEDICARE ==
--- NOTE | 2023-02-10 12:07 | CTL ---
EXAMINATION: SCREENING CT SCAN OF THE CHEST WITHOUT IV CONTRAST DATE OF EXAM: 02/10/2023 11:33 AM HISTORY: High risk for lung cancer. COMPARISON: 02/09/2022. TECHNIQUE: CT examination of the chest was performed without IV contrast. Sagittal, coronal and MIP r eformatted images were provided. Low dose technique was used. CT dose lowering techniques were used, to include: automated exposure control, adjustment for patient size, and or use of iterative reconstr uction. FINDINGS: Nodules: There are no significant pulmonary nodules. Lungs: There is moderate diffuse centrilobular emphysema. Mediastinum: Normal. Coronary artery calcification: Moderate diffuse coronary artery calcifications. Aorta/Cardiac Chambers: There is significant vascular calcification throughout the thoracic aorta wit hout evidence of aneurysmal dilation. Upper Abdomen: Normal. Chest Wall: Normal. Musculoskeletal: Normal. IMPRESSION: 1. ACR LUNGRADS CATEGORY:LungRads 2 - BENIGN APPEARING OR BEHAVIOR. Nodules with a very low likelih ood of becoming a clinically active cancer due to size or lack of growth. Probability of malignancy c onsidered < 1%. 2. Recommendation: Continue annual screening with low dose CT in 12 months. 3. Moderate emphysema. 4. Moderate coronary calcifications.
== END | disposition home or self-care (01) ==
LOC: RADCTMAIN 10:51
PROVIDERS: ATTEND Family Medicine
DX: Z12.2 Encounter for screening for malignant neoplasm of respiratory organs (principal); J43.2 Centrilobular emphysema; I25.10 Atherosclerotic heart disease of native coronary artery without angina pectoris; F17.210 Nicotine dependence, cigarettes, uncomplicated
CPT/HCPCS: 71271

== ENCOUNTER 2023-03-05 12:11 | Emergency (ER) | payer MEDICARE ==
[2023-03-05 12:31] VITALS: TEMP 98.5
[2023-03-05 13:12] LABS: Basophils % (A) 0 %; Eosinophils # (A) 0.1 k/uL (0-0.7); Eosinophils % (A) 0 %; HCT 46.8 % (34.0-46.0); HGB 16.5 gm/dL (11.4-16.0); Lymphocytes # (A) 2.7 k/uL (1.0-4.8); Lymphocytes % (A) 20 %; MCH 32.7 pg (25.0-35.0); MCHC 35.2 g/dL (31.0-37.0); MCV 92.8 fL (80.0-100.0); Mean Platelet Volume 10.3; Monocytes # (A) 0.7 k/uL (0-1.0); Monocytes % (A) 5 %; Neutrophils # (A) 9.9 k/uL (1.3-7.7); Neutrophils % (A) 73 %; Platelet Count 186 k/uL (150-450); RBC 5.04 m/uL (3.80-5.40); RDW 12.3 % (11.5-15.5); WBC 13.6 k/uL (3.8-10.6)
[2023-03-05 13:19] LABS: ALT 22 U/L (4-34); AST 28 U/L (14-36); African American GFR (CKD) 61 (>60 ml/min/1.73 sqM); Albumin 4.8 g/dL (3.5-5.0); Alkaline Phosphatase 71 U/L (38-126); Anion Gap 13 mmol/L; Blood Urea Nitrogen 30 mg/dL (7-17); Carbon Dioxide 27 mmol/L (22-30); Chloride 95 mmol/L (98-107); Glucose 113 mg/dL (74-99); Non-African American GFR(CKD) 53 (>60 ml/min/1.73 sqM); Potassium 4.4 mmol/L (3.5-5.1); Sodium 135 mmol/L (137-145); Total Bilirubin 1.3 mg/dL (0.2-1.3); Total Protein 7.7 g/dL (6.3-8.2)
[2023-03-05 13:28] LABS: INR 0.9 (<1.2); Prothrombin Time 10.2 sec (10.0-12.5)
[2023-03-05] MEDS ORDERED: SODIUM CHLORIDE 0.9% 1,000 ML IV STA (13:59)
[2023-03-05 14:19] VITALS: RESP 18
--- NOTE | 2023-03-05 14:22 | ED ---
General Adult HPI - General Chief complaint: Dizziness Stated complaint: dizziness Time Seen by Provider: 03/05/23 13:49 Source: patient, family, RN notes reviewed Mode of arrival: ambulatory Limitations: no limitations - History of Present Illness Initial comments: Patient is a pleasant 78-year-old female presenting to the emergency department with concern for lightheaded episodes. Patient has several the past month. Patient is not passed out. No vertigo type symptoms. Symptoms usually occur while she is standing or doing activities. Patient has started blood pressure medication recently. Blood pressure was running high prior to this. Patient does have occasional anxiety. No isolated area of weakness. No chest pain. - Related Data Home Medications Medication Instructions Recorded Confirmed Atorvastatin [Lipitor] 40 mg PO QAM 10/07/17 10/07/17 Cephalexin [Keflex] 500 mg PO TID 10/07/17 10/07/17 Eszopiclone [Lunesta] 3 mg PO HS 10/07/17 10/07/17 Ezetimibe [Zetia] 10 mg PO QAM 10/07/17 10/07/17 Ranitidine HCl [Zantac] 150 mg PO QAM 10/07/17 10/07/17 Previous Rx's Medication Instructions Recorded predniSONE 10 mg PO BID 3 Days #6 tab 07/18/19 Allergies Allergy/AdvReac Type Severity Reaction Status Date / Time Sulfa (Sulfonamide Allergy eyes get Verified 07/18/19 09:49 Antibiotics) red and ithcy Review of Systems ROS Statement: Those systems with pertinent positive or pertinent negative responses have been documented in the HPI. ROS Other: All systems not noted in ROS Statement are negative. Constitutional: Denies: fever Eyes: Denies: eye pain ENT: Denies: ear pain Respiratory: Denies: cough, dyspnea Cardiovascular: Denies: chest pain Endocrine: Denies: fatigue Gastrointestinal: Denies: abdominal pain Neurological: Denies: headache, weakness, confusion Past Medical History Past Medical History: GERD/Reflux, Hyperlipidemia History of Any Multi-Drug Resistant Organisms: None Reported Past Surgical History: Section, Hysterectomy Past Anesthesia/Blood Transfusion Reactions: No Reported Reaction Past Psychological History: No Psychological Hx Reported Past Alcohol Use History: None Reported Past Drug Use History: None Reported - Past Family History Father Family Medical History: Cancer Additional Family Medical History / Comment(s): pancreatic General Exam Limitations: no limitations General appearance: alert, in no apparent distress Head exam: Present: normocephalic Eye exam: Present: normal appearance Neck exam: Present: normal inspection Expanded Neck exam: Absent: carotid bruit Respiratory exam: Present: normal lung sounds bilaterally Cardiovascular Exam: Present: regular rate, normal rhythm Expanded Peripheral pulses: 2+: Radial (R), Radial (L), Posterior Tibialis (R), Posterior Tibialis (L) GI/Abdominal exam: Present: soft. Absent: tenderness, pulsatile mass Extremities exam: Absent: normal inspection, pedal edema, calf tenderness Neurological exam: Present: alert, CN II-XII intact. Absent: motor sensory deficit Psychiatric exam: Present: normal affect, normal mood Skin exam: Present: normal color Course Vital Signs 03/05/23 03/05/23 03/05/23 12:19 13:56 14:44 Temperature 98.5 F Pulse Rate 106 H 93 Pulse Rate [ 79 Right Sitting Pulse Oximetery ] Pulse Rate [ 82 Right Standing Pulse Oximetery ] Pulse Rate [ 71 Right Supine Pulse Oximetery ] Respiratory 20 18 Rate Blood Pressure 103/58 95/61 Blood Pressure 113/57 [Right Arm Sitting] Blood Pressure 92/40 [Right Arm Standing] Blood Pressure 116/55 [Right Arm Supine] O2 Sat by Pulse 96 97 Oximetry 03/05/23 19:38 Temperature Pulse Rate Pulse Rate [ Right Sitting Pulse Oximetery ] Pulse Rate [ Right Standing Pulse Oximetery ] Pulse Rate [ Right Supine Pulse Oximetery ] Respiratory Rate Blood Pressure 105/49 Blood Pressure [Right Arm Sitting] Blood Pressure [Right Arm Standing] Blood Pressure [Right Arm Supine] O2 Sat by Pulse Oximetry EKG Findings - EKG Results: EKG: interpreted by ERMD (Septal Q waves), sinus rhythm, normal axis, normal ST/T Medical Decision Making - Medical Decision Making Was pt. sent in by a medical professional or institution (, PA, PLEAT PATTERNMAKER, urgent care, hospital, or [facility]...) When possible be specific @ -No Did you speak to anyone other than the patient for history (EMS, parent, family, police, friend...)? What history was obtained from this source @ -Daughter and son-in-law, Dr. Best are present and provide history including medications Did you review nursing and triage notes (agree or disagree)? Why? @ -I reviewed and agree with nursing and triage notes Were old charts reviewed (outside hosp., previous admission, EMS record, old EKG, old radiological studies, urgent care reports/EKG's, [facility] records)? Report findings @ -No old charts were reviewed Differential Diagnosis (chest pain, altered mental status, abdominal pain women, abdominal pain men, vaginal bleeding, weakness, fever, dyspnea, syncope, headache, dizziness, GI bleed, back pain, seizure, CVA, palpatations, mental health, musculoskeletal)? @ - Differential Dizziness: Benign paroxysmal positional Vertigo, Menieres disease, otitis media, acoustic neuroma, vertebrobasilar insufficiency, cerebellar stroke, encephalitis, hypovolemic, arrhythmia, coronary artery syndrome, anemia, this is not meant to be an all-inclusive list EKG interpreted by me (3pts min.). @ -As above X-rays interpreted by me (1pt min.). @ -Chest x-ray shows no acute process CT interpreted by me (1pt min.). @ -None done U/S interpreted by me (1pt. min.). @ -Reports reviewed What testing was considered but not performed or refused? (CT, X-rays, U/S, labs)? Why? @ -None What meds were considered but not given or refused? Why? @ -None Did you discuss the management of the patient with other professionals (professionals i.e. , PA, PLEAT PATTERNMAKER, lab, RT, psych nurse, social worker health services, fish liver sorter, teacher, philanthropy officer, machine adjuster leader case trim)? Give summary @ -Case was discussed with patient's primary care physician Dr. Fonseca Was smoking cessation discussed for >3mins.? @ -No Was critical care preformed (if so, how long)? @ -No Were there social determinants of health that impacted care today? How? (Homelessness, low income, unemployed, alcoholism, drug addiction, transportation, low edu. Level, literacy, decrease access to med. care, [facility], rehab)? @ -No Was there de-escalation of care discussed even if they declined (Discuss DNR or withdrawal of care, Hospice)? DNR status @ -No What co-morbidities impacted this encounter? (DM, HTN, Smoking, COPD, CAD, Cancer, CVA, ARF, Chemo, Hep., AIDS, mental health diagnosis, sleep apnea, morbid obesity)? @ -None Was patient admitted / discharged? Hospital course, mention meds given and route, prescriptions, significant lab abnormalities, going to OR and other pertinent info. @ -Patient reevaluated and does feel somewhat better with fluids. Patient and family updated on results including small abdominal aneurysm and need for follow-up with this. l Undiagnosed new problem with uncertain prognosis? @ -No Drug Therapy requiring intensive monitoring for toxicity (Heparin, Nitro, Insulin, Cardizem)? @ -No Were any procedures done? @ -No Diagnosis/symptom? @ -Lightheadedness Acute, or Chronic, or Acute on Chronic? @ -Acute Uncomplicated (without systemic symptoms) or Complicated (systemic symptoms)? @ -default Side effects of treatment? @ -No Exacerbation, Progression, or Severe Exacerbation? @ -No Poses a threat to life or bodily function? How? (Chest pain, [place], [place], pneumonia, PE, COPD, DKA, ARF, appy, cholecystitis, CVA, Diverticulitis, Homicidal, Suicidal, threat to staff... and all critical care pts) @ -No - Lab Data Result diagrams: 03/05/23 12:40 03/05/23 12:40 Lab Results 03/05/23 03/05/23 03/05/23 Range/Units 12:40 12:40 12:40 WBC 13.6 H (3.8-10.6) k/uL RBC 5.04 (3.80-5.40) m/uL Hgb 16.5 H (11.4-16.0) gm/dL Hct 46.8 H (34.0-46.0) % MCV 92.8 (80.0-100.0) fL MCH 32.7 (25.0-35.0) pg MCHC 35.2 (31.0-37.0) g/dL RDW 12.3 (11.5-15.5) % Plt Count 186 (150-450) k/uL MPV 10.3 Neutrophils % 73 % Lymphocytes % 20 % Monocytes % 5 % Eosinophils % 0 % Basophils % 0 % Neutrophils # 9.9 H (1.3-7.7) k/uL Lymphocytes # 2.7 (1.0-4.8) k/uL Monocytes # 0.7 (0-1.0) k/uL Eosinophils # 0.1 (0-0.7) k/uL Basophils # 0.0 (0-0.2) k/uL PT 10.2 (10.0-12.5) sec INR 0.9 (<1.2) Sodium 135 L (137-145) mmol/L Potassium 4.4 (3.5-5.1) mmol/L Chloride 95 L (98-107) mmol/L Carbon Dioxide 27 (22-30) mmol/L Anion Gap 13 mmol/L BUN 30 H (7-17) mg/dL Creatinine 1.02 (0.52-1.04) mg/dL Est GFR (CKD-EPI)AfAm 61 (>60 ml/min/1.73 sqM) Est GFR (CKD-EPI)NonAf 53 (>60 ml/min/1.73 sqM) Glucose 113 H (74-99) mg/dL Calcium 11.0 H (8.4-10.2) mg/dL Total Bilirubin 1.3 (0.2-1.3) mg/dL AST 28 (14-36) U/L ALT 22 (4-34) U/L Alkaline Phosphatase 71 (38-126) U/L Troponin I (0.000-0.034) ng/mL Total Protein 7.7 (6.3-8.2) g/dL Albumin 4.8 (3.5-5.0) g/dL Urine Color Urine Appearance (Clear) Urine pH (5.0-8.0) Ur Specific [place] (1.001-1.035) Urine Protein (Negative) Urine Glucose (UA) (Negative) Urine Ketones (Negative) Urine Blood (Negative) Urine Nitrite (Negative) Urine Bilirubin (Negative) Urine Urobilinogen (<2.0) mg/dL Ur Leukocyte Esterase (Negative) 03/05/23 03/05/23 Range/Units 12:40 15:23 WBC (3.8-10.6) k/uL RBC (3.80-5.40) m/uL Hgb (11.4-16.0) gm/dL Hct (34.0-46.0) % MCV (80.0-100.0) fL MCH (25.0-35.0) pg MCHC (31.0-37.0) g/dL RDW (11.5-15.5) % Plt Count (150-450) k/uL MPV Neutrophils % % Lymphocytes % % Monocytes % % Eosinophils % % Basophils % % Neutrophils # (1.3-7.7) k/uL Lymphocytes # (1.0-4.8) k/uL Monocytes # (0-1.0) k/uL Eosinophils # (0-0.7) k/uL Basophils # (0-0.2) k/uL PT (10.0-12.5) sec INR (<1.2) Sodium (137-145) mmol/L Potassium (3.5-5.1) mmol/L Chloride (98-107) mmol/L Carbon Dioxide (22-30) mmol/L Anion Gap mmol/L BUN (7-17) mg/dL Creatinine (0.52-1.04) mg/dL Est GFR (CKD-EPI)AfAm (>60 ml/min/1.73 sqM) Est GFR (CKD-EPI)NonAf (>60 ml/min/1.73 sqM) Glucose (74-99) mg/dL Calcium (8.4-10.2) mg/dL Total Bilirubin (0.2-1.3) mg/dL AST (14-36) U/L ALT (4-34) U/L Alkaline Phosphatase (38-126) U/L Troponin I <0.012 (0.000-0.034) ng/mL Total Protein (6.3-8.2) g/dL Albumin (3.5-5.0) g/dL Urine Color Yellow Urine Appearance Clear (Clear) Urine pH 6.5 (5.0-8.0) Ur Specific [place] 1.014 (1.001-1.035) Urine Protein Negative (Negative) Urine Glucose (UA) Negative (Negative) Urine Ketones Negative (Negative) Urine Blood Negative (Negative) Urine Nitrite Negative (Negative) Urine Bilirubin Negative (Negative) Urine Urobilinogen <2.0 (<2.0) mg/dL Ur Leukocyte Esterase Negative (Negative) Disposition Clinical Impression: Lightheadedness Disposition: HOME SELF-CARE Condition: Stable Instructions (If sedation given, give patient instructions): Dizziness (ED) Additional Instructions: Please do follow-up with your primary care physician this week. Return for increased lightheadedness, passing out, pain, weakness, worsening change in symptoms or any other concerns. Have primary care physician review studies done today, especially ultrasound of aorta. You will need monitoring for this. Holding blood pressure medication unless systolic blood pressure greater than 150 Is patient prescribed a controlled substance at d/c from ED?: No Referrals: Rancho Fonseca MD [Primary Care Provider] - 1-2 days Time of Disposition: 19:25
[2023-03-05 15:36] LABS: Appearance,Urine Clear (Clear); Bilirubin,Urine Negative (Negative); Blood,Urine Negative (Negative); Color,Urine Yellow; Glucose,Urine (UA) Negative (Negative); Ketones,Urine Negative (Negative); Leukocyte Esterase,Urine Negative (Negative); Nitrite,Urine Negative (Negative); PH, Urine 6.5 (5.0-8.0); Protein,Urine Negative (Negative); Specific Gravity,Urine 1.014 (1.001-1.035); Urobilinogen,Urine <2.0 mg/dL (<2.0)
--- NOTE | 2023-03-05 15:59 | XR ---
EXAMINATION TYPE: XR chest 2V DATE OF EXAM: 03/05/2023 2:56 PM CLINICAL INDICATION:Female, 78 years old with history of near syncope; [facility] COMPARISON: None TECHNIQUE: XR chest 2V. Frontal and lateral views of the chest.. FINDINGS: Lines/Tubes/Devices: No indwelling lines are seen. Heart/mediastinum: Heart size upper normal. Tortuous aorta with atherosclerotic calcification. Pulmonary vascularity: Not increased, Lungs/Pleura: Hyperinflation with flattening of the diaphragm and mild interstitial changes. No evide nce of focal consolidation, sizeable pleural effusion, or pneumothorax. Musculoskeletal: No acute osseous abnormality demonstrated in the limits of the exam. Mild degenerat sebastian changes of the shoulders and dorsal spine. Other findings: None. IMPRESSION: No acute cardiopulmonary abnormality.
--- NOTE | 2023-03-05 18:03 | US ---
EXAMINATION TYPE: US duplex aorta DATE OF EXAM: 03/05/2023 COMPARISON: NONE CLINICAL INDICATION: Female, 78 years old with history of near syncope; hx ectatic aorta TECHNIQUE: Multiple sonographic images of the abdominal aorta are obtained. FINDINGS: EXAM MEASUREMENTS: Abdominal Aorta: (All measurements in centimeters) Proximal: 1.8x2.1 Mid: 1.7x1.8 Distal: 2.5x3.3 Bifurcation: Right [place]: 0.9x0.8 Left Illiac: 0.4x0.3, small caliber vessel, may be due to atherosclerotic buildup Diffuse irregularity of the arterial fxo suggesting atherosclerotic disease. IVC, and CIVs scanned per physician request. These appear grossly patent with preserved color flow si gnal and venous waveform. CASE CHECKER NOTES: IMPRESSION: 1. Diffuse atherosclerotic disease. 2. Normal caliber of the proximal and mid abdominal aorta. 3. 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 4. Reduced caliber of the left iliac artery, probably secondary to atherosclerotic disease.
--- NOTE | 2023-03-05 19:04 | US ---
EXAMINATION TYPE: US venous doppler duplex LE LT DATE OF EXAM: 03/05/2023 5:00 PM COMPARISON: NONE CLINICAL INDICATION: Female, 78 years old with history of pain; Pain x a few days. No hx of DVT. Cristy ent does not take blood thinners. SIDE PERFORMED: Left TECHNIQUE: The lower extremity deep venous system is examined utilizing real time linear array sonog jose martin with graded compression, doppler sonography and color-flow sonography. VESSELS IMAGED: Common Femoral Vein Deep Femoral Vein Greater Saphenous Vein * Femoral Vein Popliteal Vein Small Saphenous Vein * Proximal Calf Veins (* superficial vessels) Imaged veins fill with normal color signal, show the expected waveforms and compressibility. No evide nce of intraluminal filling defect. Left Leg: No evidence of DVT. IMPRESSION: No evidence of left lower extremity DVT.
[2023-03-05 20:02] VITALS: BP 96/59; PULSE 70
== END 2023-03-05 19:56 | disposition home or self-care (01) ==
LOC: EC 12:11
DX: R42 Dizziness and giddiness (principal); E78.5 Hyperlipidemia, unspecified; K21.9 Gastro-esophageal reflux disease without esophagitis; Z79.899 Other long term (current) drug therapy; Z88.2 Allergy status to sulfonamides
CPT/HCPCS: 36415; 71046; 80053; 81003; 84484; 85025; 85610; 93005; 93979; 96360; 99284

== ENCOUNTER → 2023-03-08 | Outpatient (CLI) | payer MEDICARE ==
[2023-03-08 16:00] LABS: Ionized Calcium 5.3 mg/dL (4.5-5.3)
[2023-03-08 17:06] LABS: Chloride 102 mmol/L (98-107); Potassium 3.8 mmol/L (3.5-5.1); Sodium 137 mmol/L (137-145)
[2023-03-08 17:21] LABS: African American GFR (CKD) >90 (>60 ml/min/1.73 sqM); Anion Gap 7 mmol/L; Blood Urea Nitrogen 24 mg/dL (7-17); Calcium 10.2 mg/dL (8.4-10.2); Carbon Dioxide 28 mmol/L (22-30); Glucose 101 mg/dL (74-99); Non-African American GFR(CKD) 84 (>60 ml/min/1.73 sqM)
[2023-03-08 22:49] LABS: BUN/Creat Ratio 23.67 Ratio (12.00-20.00)
== END | disposition home or self-care (01) ==
LOC: LABWHC1 14:59
PROVIDERS: ATTEND Family Medicine
DX: Z09 Encounter for follow-up examination after completed treatment for conditions other than malignant neoplasm (principal); E83.52 Hypercalcemia
CPT/HCPCS: 36415; 80048; 82330

== ENCOUNTER → 2023-03-15 | Outpatient (CLI) | payer MEDICARE ==
--- NOTE | 2023-03-15 11:27 | US ---
EXAMINATION TYPE: US carotid duplex BILAT DATE OF EXAM: 03/15/2023 COMPARISON: NONE CLINICAL INDICATION: Female, 78 years old with history of R55 NEAR SYNCOPE; TECHNIQUE: Carotid duplex ultrasound examination. Indirect Doppler criteria was utilized. FINDINGS: EXAM MEASUREMENTS: RIGHT: Peak Systolic Velocity (PSV) cm/sec ----- Right CCA: 57.2 ----- Right ICA: 86.8 ----- Right ECA: 125.1 ICA/CCA ratio: 1.5 RIGHT: End Diastole cm/sec ----- Right CCA: 16.2 ----- Right ICA: 32.2 ----- Right ECA: 16.3 LEFT: Peak Systolic Velocity (PSV) cm/sec ----- Left CCA: 67.6 ----- Left ICA: 93.0 ----- Left ECA: 103.0 ICA/CCA ratio: 1.4 LEFT: End Diastole cm/sec ----- Left CCA: 17.6 ----- Left ICA: 31.4 ----- Left ECA: 13.7 VERTEBRALS (direction of flow): Right Vertebral: Antegrade Left Vertebral: Antegrade Rhythm: Normal No significant stenosis IMPRESSION: Less than 50% stenosis of the bilateral carotid bifurcations. Criteria for Assigning % of Stenosis / Diameter reduction (Estimation based on the indirect measurements of the internal carotid artery velocities (ICA PSV). 1. Normal (no stenosis)=ICA PSV < 125 cm/s: ratio < 2.0: ICA EDV<40 cm/s. 2. Less than 50% stenosis=ICA PSV < 125 cm/s: ratio < 2.0: ICA EDV<40 cm/s. 3. 50 to 69% stenosis=ICA PSV of 125 to 230 cm/s: ration 2.0 ? 4.0: ICA EDV 40-100 cm/s. 4. Greater than 70% stenosis to near occlusion= ICA PSV > 230 cm/s: ratio > 4.0: ICA EDV > 100 cm/s. 5. Near occlusion= ICA PSV velocities may be low or undetectable: variable ratio and ICA EDV. 6. Total occlusion=unable to detect flow.
== END | disposition home or self-care (01) ==
LOC: RADUSWWP 10:49
PROVIDERS: ATTEND Family Medicine
DX: I65.23 Occlusion and stenosis of bilateral carotid arteries (principal)
CPT/HCPCS: 93880

== ENCOUNTER 2023-03-28 09:14 | Observation (INO) | payer MEDICARE ==
--- NOTE | 2023-03-28 09:45 | ED ---
General Adult HPI - General Chief complaint: Arrhythmia/Palpitations Stated complaint: AFib/AFlutter Time Seen by Provider: 03/28/23 09:23 Source: patient, RN notes reviewed, old records reviewed Mode of arrival: ambulatory Limitations: no limitations - History of Present Illness Initial comments: 78-year-old presenting with lightheadedness, dizziness, elevated heart rate. Patient had been taking her vital signs at home she has a history of hypertens ion and was started on 5 mg of lisinopril. This morning her blood pressure was low and heart rate was quite elevated she states that she had a heart rate close to 200. She denies chest pain. Denies fever. States she is currently being treated for urinary tract infection. No prior history of atrial fibrillation or cardiac dysrhythmia. - Related Data Home Medications Medication Instructions Recorded Confirmed Atorvastatin [Lipitor] 40 mg PO DAILY 10/07/17 03/28/23 Eszopiclone [Lunesta] 3 mg PO HS 10/07/17 03/28/23 Ezetimibe [Zetia] 10 mg PO DAILY 10/07/17 03/28/23 Cholecalciferol [Vitamin D3 (125 125 mcg PO DAILY 03/28/23 03/28/23 Mcg = 5000 Iu)] Lisinopril-Hctz 10-12.5 mg 0.5 tab PO DAILY 03/28/23 03/28/23 [Zestoretic 10-12.5] Allergies Allergy/AdvReac Type Severity Reaction Status Date / Time latex Allergy Mild Itching Verified 03/28/23 11:01 Sulfa (Sulfonamide Allergy eyes get Verified 03/28/23 11:01 Antibiotics) red and ithcy Review of Systems ROS Statement: Those systems with pertinent positive or pertinent negative responses have been documented in the HPI. ROS Other: All systems not noted in ROS Statement are negative. Past Medical History Past Medical History: Atrial Fibrillation, GERD/Reflux, Hyperlipidemia History of Any Multi-Drug Resistant Organisms: None Reported Past Surgical History: Section, Hysterectomy Past Anesthesia/Blood Transfusion Reactions: No Reported Reaction Past Psychological History: No Psychological Hx Reported Smoking Status: Current every day smoker Past Alcohol Use History: None Reported Past Drug Use History: None Reported - Past Family History Father Family Medical History: Cancer Additional Family Medical History / Comment(s): pancreatic General Exam Limitations: no limitations General appearance: alert, in no apparent distress Head exam: Present: atraumatic, normocephalic Eye exam: Present: normal appearance, PERRL ENT exam: Present: mucous membranes dry Neck exam: Present: normal inspection. Absent: tenderness, meningismus Respiratory exam: Present: normal lung sounds bilaterally. Absent: respiratory distress, wheezes Cardiovascular Exam: Present: regular rate, normal rhythm GI/Abdominal exam: Present: soft. Absent: distended, tenderness Extremities exam: Present: normal inspection, normal capillary refill. Absent: joint swelling Neurological exam: Present: alert, oriented X3, CN II-XII intact. Absent: motor sensory deficit Psychiatric exam: Present: normal affect, normal mood Skin exam: Present: warm, dry, intact. Absent: cyanosis, diaphoretic Course Vital Signs 03/28/23 03/28/23 03/28/23 09:19 09:28 09:32 Temperature 98 F Pulse Rate 140 H 92 Pulse Rate [ 103 H Seat Joiner Chainstitch ] Respiratory 24 16 Rate Blood Pressure 87/50 107/53 O2 Sat by Pulse 97 99 Oximetry 03/28/23 10:02 Temperature Pulse Rate 82 Pulse Rate [ Seat Joiner Chainstitch ] Respiratory 16 Rate Blood Pressure 131/62 O2 Sat by Pulse 97 Oximetry Medical Decision Making - Medical Decision Making Was pt. sent in by a medical professional or institution (, PA, INSTANT PRINTER OPERATOR, urgent care, hospital, or jail...) When possible be specific @ -No Did you speak to anyone other than the patient for history (EMS, parent, family, police, friend...)? What history was obtained from this source @ -No Did you review nursing and triage notes (agree or disagree)? Why? @ -I reviewed and agree with nursing and triage notes Were old charts reviewed (outside hosp., previous admission, EMS record, old EKG, old radiological studies, urgent care reports/EKG's, jail records)? Report findings @ -No old charts were reviewed Differential Diagnosis (chest pain, altered mental status, abdominal pain women, abdominal pain men, vaginal bleeding, weakness, fever, dyspnea, syncope, headache, dizziness, GI bleed, back pain, seizure, CVA, palpatations, mental health, musculoskeletal)? @ -[Differential Syncope: Valvular disease, hypertrophic cardiomyopathy, pulmonary embolism, tamponade, tachycardia, bradycardia, NJ, hypovolemia, hemorrhage, dissection, anemia, intracranial hemorrhage, seizure, hypoglycemia, carbon monoxide poisoning, this is not meant to be an all-inclusive list. EKG interpreted by me (3pts min.). @ -Sinus rhythm rate of 98, CO interval 139, QRS duration 67, QTc 377, no ST segment elevation X-rays interpreted by me (1pt min.). @Chest x-ray negative for acute cardiopulmonary findings CT interpreted by me (1pt min.). @ -None done U/S interpreted by me (1pt. min.). @ -None done What testing was considered but not performed or refused? (CT, X-rays, U/S, labs)? Why? @ -None What meds were considered but not given or refused? Why? @ -None Did you discuss the management of the patient with other professionals (professionals i.e. , PA, INSTANT PRINTER OPERATOR, lab, RT, psych nurse, geriatric social worker, lead data architect, teacher, [place] police officer, case maker)? Give summary @ -Dr. Ng Was smoking cessation discussed for >3mins.? @ -No Was critical care preformed (if so, how long)? @ -No Were there social determinants of health that impacted care today? How? (Homelessness, low income, unemployed, alcoholism, drug addiction, transportation, low edu. Level, literacy, decrease access to med. care, usp, rehab)? @ -No Was there de-escalation of care discussed even if they declined (Discuss DNR or withdrawal of care, Hospice)? DNR status @ -No What co-morbidities impacted this encounter? (DM, HTN, Smoking, COPD, CAD, Cancer, CVA, ARF, Chemo, Hep., AIDS, mental health diagnosis, sleep apnea, morbid obesity)? @ -None Was patient admitted / discharged? Hospital course, mention meds given and route, prescriptions, significant lab abnormalities, going to OR and other pertinent info. @ -Patient admitted for monitoring, hydration, patient has acute kidney injury with elevated creatinine twice above baseline. No signs of urinary tract infection, mild leukocytosis at 14. Undiagnosed new problem with uncertain prognosis? @ -No Drug Therapy requiring intensive monitoring for toxicity (Heparin, Nitro, Insulin, Cardizem)? @ -No Were any procedures done? @ -No Diagnosis/symptom? @Dehydration, MOOSE Acute, or Chronic, or Acute on Chronic? @ -[Acute Uncomplicated (without systemic symptoms) or Complicated (systemic symptoms)? @ -Default Side effects of treatment? @ -No Exacerbation, Progression, or Severe Exacerbation? @ -No Poses a threat to life or bodily function? How? (Chest pain, USA, NJ, pneumonia, PE, COPD, DKA, ARF, appy, cholecystitis, CVA, Diverticulitis, Homicidal, Suicidal, threat to staff... and all critical care pts) @ -Moderate risk - Lab Data Result diagrams: 03/28/23 09:03/28/23 09: Lab Results 03/28/23 03/28/23 03/28/23 Range/Units : 09: 09: WBC 14.5 H (3.8-10.6) k/uL RBC 5.02 (3.80-5.40) m/uL Hgb 15.9 (11.4-16.0) gm/dL Hct 46.1 H (34.0-46.0) % MCV 92.0 (80.0-100.0) fL MCH 31.6 (25.0-35.0) pg MCHC 34.4 (31.0-37.0) g/dL RDW 12.1 (11.5-15.5) % Plt Count 207 (150-450) k/uL MPV 10.0 Neutrophils % 74 % Lymphocytes % 19 % Monocytes % 5 % Eosinophils % 1 % Basophils % 0 % Neutrophils # 10.7 H (1.3-7.7) k/uL Lymphocytes # 2.7 (1.0-4.8) k/uL Monocytes # 0.7 (0-1.0) k/uL Eosinophils # 0.2 (0-0.7) k/uL Basophils # 0.0 (0-0.2) k/uL PT 10.3 (10.0-12.5) sec INR 0.9 (<1.2) APTT 21.9 L (22.0-30.0) sec Sodium 136 L (137-145) mmol/L Potassium 3.8 (3.5-5.1) mmol/L Chloride 100 (98-107) mmol/L Carbon Dioxide 21 L (22-30) mmol/L Anion Gap 15 mmol/L BUN 25 H (7-17) mg/dL Creatinine 1.26 H (0.52-1.04) mg/dL Est GFR (CKD-EPI)AfAm 47 (>60 ml/min/1.73 sqM) Est GFR (CKD-EPI)NonAf 41 (>60 ml/min/1.73 sqM) Glucose 149 H (74-99) mg/dL Calcium 10.4 H (8.4-10.2) mg/dL Magnesium 1.7 (1.6-2.3) mg/dL Total Bilirubin 1.4 H (0.2-1.3) mg/dL AST 36 (14-36) U/L ALT 26 (4-34) U/L Alkaline Phosphatase 76 (38-126) U/L Troponin I (0.000-0.034) ng/mL Total Protein 7.6 (6.3-8.2) g/dL Albumin 4.7 (3.5-5.0) g/dL Urine Color Urine Appearance (Clear) Urine pH (5.0-8.0) Ur Specific [place] (1.001-1.035) Urine Protein (Negative) Urine Glucose (UA) (Negative) Urine Ketones (Negative) Urine Blood (Negative) Urine Nitrite (Negative) Urine Bilirubin (Negative) Urine Urobilinogen (<2.0) mg/dL Ur Leukocyte Esterase (Negative) 03/28/23 03/28/23 Range/Units 09:26 11:32 WBC (3.8-10.6) k/uL RBC (3.80-5.40) m/uL Hgb (11.4-16.0) gm/dL Hct (34.0-46.0) % MCV (80.0-100.0) fL MCH (25.0-35.0) pg MCHC (31.0-37.0) g/dL RDW (11.5-15.5) % Plt Count (150-450) k/uL MPV Neutrophils % % Lymphocytes % % Monocytes % % Eosinophils % % Basophils % % Neutrophils # (1.3-7.7) k/uL Lymphocytes # (1.0-4.8) k/uL Monocytes # (0-1.0) k/uL Eosinophils # (0-0.7) k/uL Basophils # (0-0.2) k/uL PT (10.0-12.5) sec INR (<1.2) APTT (22.0-30.0) sec Sodium (137-145) mmol/L Potassium (3.5-5.1) mmol/L Chloride (98-107) mmol/L Carbon Dioxide (22-30) mmol/L Anion Gap mmol/L BUN (7-17) mg/dL Creatinine (0.52-1.04) mg/dL Est GFR (CKD-EPI)AfAm (>60 ml/min/1.73 sqM) Est GFR (CKD-EPI)NonAf (>60 ml/min/1.73 sqM) Glucose (74-99) mg/dL Calcium (8.4-10.2) mg/dL Magnesium (1.6-2.3) mg/dL Total Bilirubin (0.2-1.3) mg/dL AST (14-36) U/L ALT (4-34) U/L Alkaline Phosphatase (38-126) U/L Troponin I <0.012 (0.000-0.034) ng/mL Total Protein (6.3-8.2) g/dL Albumin (3.5-5.0) g/dL Urine Color Light [place] Urine Appearance Clear (Clear) Urine pH 5.5 (5.0-8.0) Ur Specific [place] 1.007 (1.001-1.035) Urine Protein Negative (Negative) Urine Glucose (UA) Negative (Negative) Urine Ketones Negative (Negative) Urine Blood Negative (Negative) Urine Nitrite Negative (Negative) Urine Bilirubin Negative (Negative) Urine Urobilinogen <2.0 (<2.0) mg/dL Ur Leukocyte Esterase Negative (Negative) Disposition Clinical Impression: Palpitations, MOOSE (acute kidney injury), Dehydration Disposition: ADMITTED IP TO THIS HOSP Condition: Stable Is patient prescribed a controlled substance at d/c from ED?: No Referrals: Rancho Fonseca MD [Primary Care Provider] - 1-2 days Time of Disposition: 12:47
[2023-03-28 09:46] LABS: Basophils % (A) 0 %; Eosinophils # (A) 0.2 k/uL (0-0.7); Eosinophils % (A) 1 %; HCT 46.1 % (34.0-46.0); HGB 15.9 gm/dL (11.4-16.0); Lymphocytes # (A) 2.7 k/uL (1.0-4.8); Lymphocytes % (A) 19 %; MCH 31.6 pg (25.0-35.0); MCHC 34.4 g/dL (31.0-37.0); Monocytes # (A) 0.7 k/uL (0-1.0); Monocytes % (A) 5 %; Neutrophils # (A) 10.7 k/uL (1.3-7.7); Neutrophils % (A) 74 %; Platelet Count 207 k/uL (150-450); RBC 5.02 m/uL (3.80-5.40); RDW 12.1 % (11.5-15.5); WBC 14.5 k/uL (3.8-10.6)
[2023-03-28 09:47] VITALS: TEMP 98
--- NOTE | 2023-03-28 09:50 | XR ---
EXAMINATION TYPE: XR chest 2V DATE OF EXAM: 03/28/2023 9:46 AM CLINICAL INDICATION:Female, 78 years old with history of dysrhythmia; [facility] COMPARISON: Chest radiographs from 03/05/2023. TECHNIQUE: XR chest 2V Frontal and lateral views of the chest. FINDINGS: Lungs/Pleura: There is no evidence of pleural effusion, focal consolidation, or pneumothorax. Pulmonary vascularity: Unremarkable. Heart/mediastinum: Cardiomediastinal silhouette is unremarkable. Musculoskeletal: No acute osseous pathology. IMPRESSION: No acute cardiopulmonary disease/process.
[2023-03-28 09:55] LABS: ALT 26 U/L (4-34); AST 36 U/L (14-36); African American GFR (CKD) 47 (>60 ml/min/1.73 sqM); Albumin 4.7 g/dL (3.5-5.0); Alkaline Phosphatase 76 U/L (38-126); Anion Gap 15 mmol/L; Blood Urea Nitrogen 25 mg/dL (7-17); Calcium 10.4 mg/dL (8.4-10.2); Carbon Dioxide 21 mmol/L (22-30); Chloride 100 mmol/L (98-107); Glucose 149 mg/dL (74-99); Magnesium 1.7 mg/dL (1.6-2.3); Non-African American GFR(CKD) 41 (>60 ml/min/1.73 sqM); Potassium 3.8 mmol/L (3.5-5.1); Sodium 136 mmol/L (137-145); Total Bilirubin 1.4 mg/dL (0.2-1.3); Total Protein 7.6 g/dL (6.3-8.2)
[2023-03-28] MEDS ORDERED: SODIUM CHLORIDE 0.9% 500 ML 500 ML IV ONE (10:01)
[2023-03-28] MEDS: SODIUM CHLORIDE 0.9% 1,000 ML IV ONE (10:06)
[2023-03-28 10:07] LABS: INR 0.9 (<1.2); Partial Thromboplastin Time 21.9 sec (22.0-30.0); Prothrombin Time 10.3 sec (10.0-12.5)
[2023-03-28 12:09] LABS: Color,Urine Light Orange
[2023-03-28 12:17] LABS: Appearance,Urine Clear (Clear); Bilirubin,Urine Negative (Negative); Blood,Urine Negative (Negative); Glucose,Urine (UA) Negative (Negative); Ketones,Urine Negative (Negative); Leukocyte Esterase,Urine Negative (Negative); Nitrite,Urine Negative (Negative); PH, Urine 5.5 (5.0-8.0); Protein,Urine Negative (Negative); Specific Gravity,Urine 1.007 (1.001-1.035); Urobilinogen,Urine <2.0 mg/dL (<2.0)
[2023-03-28] MEDS ORDERED: ACETAMINOPHEN TAB 325 MG TAB PO PRN (12:42)
[2023-03-28] MEDS ORDERED: NALOXONE 0.4 MG/ML 1 ML VIAL IV PRN (12:42)
[2023-03-28] MEDS: SODIUM CHLORIDE 0.9% 1,000 ML IV SCH (12:59)
[2023-03-28 13:12] VITALS: RESP 18
[2023-03-28] MEDS: ATORVASTATIN 40 MG TAB PO SCH (14:06)
[2023-03-28] MEDS: amLODIPine 5 MG TAB PO SCH (14:07)
[2023-03-28] MEDS: PANTOPRAZOLE 40 MG/10 ML VIAL IVP SCH (14:08)
[2023-03-28] MEDS: CHOLECALCIFEROL 125 MCG (5000 IU) TABLET PO SCH (14:08)
--- NOTE | 2023-03-28 16:21 | P.HPIM ---
History of Present Illness H&P Date: 03/28/23 This is a pleasant 78-year-old female presented with lightheadedness, dizziness, tachycardia-palpitations, soft blood pressures, dehydration in a patient with past medical history significant for hypertension, gastroesophageal reflux disease, hyperlipidemia, ongoing nicotine dependence and multiple other medical issues. 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 Recently patient was started on lisinopril HCTZ 12/02.. Reports she was taking her blood pressures with significant fluctuations in both her heart rate as well as her blood pressure. Denies prior arrhythmias, atrial fibrillation. denies syncope. Denies chest pain, palpitations or shortness of breath. Maintaining O2 sats in the high 90s on room air. Troponin negative x 1. EKG reported sinus rhythm , chest x-ray reported no acute cardiopulmonary disease/process. Denies nausea vomiting or diarrhea. Denies abdominal pain. So informed ER that she is recently being treated for UTI, currently do not see a antibiotic on medication list. UA negative. afebrile, WBC 14.5, hemoglobin 15.9, MCV 92, platelets 207, INR 0.9, sodium 136, bicarb 21, BUN 25, creatinine 1.26, glucose 149, calcium 10.4, magnesium 1.7, T. bili 1.4. Received IV fluid hydration/1 L bolus. Review of Systems ROS Statement: Those systems with pertinent positive or pertinent negative responses have been documented in the HPI. ROS Other: All systems not noted in ROS Statement are negative. Past Medical History Past Medical History: Atrial Fibrillation, GERD/Reflux, Hyperlipidemia History of Any Multi-Drug Resistant Organisms: None Reported Past Surgical History: Section, Hysterectomy Past Anesthesia/Blood Transfusion Reactions: No Reported Reaction Past Psychological History: No Psychological Hx Reported Smoking Status: Current every day smoker Past Alcohol Use History: None Reported Past Drug Use History: None Reported - Past Family History Father Family Medical History: Cancer Additional Family Medical History / Comment(s): pancreatic Medications and Allergies Home Medications Medication Instructions Recorded Confirmed Type Atorvastatin [Lipitor] 40 mg PO DAILY 10/07/17 03/28/23 History Eszopiclone [Lunesta] 3 mg PO HS 10/07/17 03/28/23 History Ezetimibe [Zetia] 10 mg PO DAILY 10/07/17 03/28/23 History Cholecalciferol [Vitamin D3 (125 125 mcg PO DAILY 03/28/23 03/28/23 History Mcg = 5000 Iu)] Lisinopril-Hctz 10-12.5 mg 0.5 tab PO DAILY 03/28/23 03/28/23 History [Zestoretic 10-12.5] Allergies Allergy/AdvReac Type Severity Reaction Status Date / Time latex Allergy Mild Itching Verified 03/28/23 11:01 Sulfa (Sulfonamide Allergy eyes get Verified 03/28/23 11:01 Antibiotics) red and ithcy Physical Exam Vitals: Vital Signs Temp Pulse Pulse Resp BP Pulse Ox 03/28/23 13:58 67 18 114/52 97 03/28/23 12:52 80 18 134/57 97 03/28/23 10:02 82 16 131/62 97 03/28/23 09:32 92 16 107/53 99 03/28/23 09:28 103 H 03/28/23 09:19 98 F 140 H 24 87/50 97 Intake and Output 03/27/23 03/28/23 03/28/23 22:59 06:59 14:59 Other: Weight 52.163 kg PHYSICAL EXAM: VITAL SIGNS: [As above] GENERAL: Alert and oriented x 3, sitting up on stretcher, no acute distress HEENT: Conjunctivae normal. eyes normal. NECK: Supple, no JVD. No thyroid enlargement. No LNs CARDIOVASCULAR: S1, S2 regular.. No murmur RESPIRATION: Breath sounds diminished in the bases. No rhonchi or crackles. No bronchial breathing. ABDOMEN: Soft, nontender . No guarding. no masses palpable. No ascites, No hepatosplenomegaly.Bowel sounds heard. LEGS: No edema. no swelling PSYCHIATRY: Alert and oriented X3, mood and affect normal. NERVOUS SYSTEM: Cranial N 2-12 grossly normal. No focal deficits. Strength and sensation grossly intact.. Skin: Warm and dry, no rash Results CBC & Chem 7: 03/28/23 09:26 03/28/23 09:26 Labs: Abnormal Lab Results - Last 24 Hours (Table) 03/28/23 03/28/23 03/28/23 Range/Units 09:26 09:26 09:26 WBC 14.5 H (3.8-10.6) k/uL Hct 46.1 H (34.0-46.0) % Neutrophils # 10.7 H (1.3-7.7) k/uL APTT 21.9 L (22.0-30.0) sec Sodium 136 L (137-145) mmol/L Carbon Dioxide 21 L (22-30) mmol/L BUN 25 H (7-17) mg/dL Creatinine 1.26 H (0.52-1.04) mg/dL Glucose 149 H (74-99) mg/dL Calcium 10.4 H (8.4-10.2) mg/dL Total Bilirubin 1.4 H (0.2-1.3) mg/dL Assessment and Plan Assessment: Symptomatic labile hypertension, recently started on Zestoretic Dehydration secondary to the above Acute renal failure secondary to the above Ongoing nicotine dependence Stress, 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 IV fluid hydration. Orthostatic vital signs ordered. Introduce Norvasc and add on lisinopril 5 mg daily tomorrow pending renal function continues to improve, blood pressures and heart rates remained stable, orthostatics report negative. PPI for GI prophylaxis close monitoring of renal function with repeat BMP in AM. Smoking cessation reinforced. discharge planning in progress. The impression and plan of care has been dictated as directed. : I performed a history and examination of this patient, discussed the same with the dictator. I agree with the dictator's note ,documented as a scribe. Any additional findings or plans will be noted.
[2023-03-28] MEDS ORDERED: lisinopriL 5 MG TAB PO SCH (17:00)
[2023-03-28 17:51] VITALS: BP 110/54; PULSE 68
[2023-03-28] MEDS ORDERED: TEMAZEPAM 15 MG CAP PO SCH (21:00)
[2023-03-29] MEDS ORDERED: EZETIMIBE 10 MG TAB PO SCH (09:00)
== END 2023-03-28 17:29 | disposition home or self-care (01) ==
LOC: EC 09:14 → 6NMEDSUR 12:44
PROVIDERS: ADMIT Family Medicine; ATTEND Family Medicine
DX: I10 Essential (primary) hypertension (principal); N17.9 Acute kidney failure, unspecified; E86.0 Dehydration; K21.9 Gastro-esophageal reflux disease without esophagitis; E78.5 Hyperlipidemia, unspecified; F17.200 Nicotine dependence, unspecified, uncomplicated; R03.1 Nonspecific low blood-pressure reading; D72.829 Elevated white blood cell count, unspecified; Z63.79 Other stressful life events affecting family and household; Z79.899 Other long term (current) drug therapy; Z91.040 Latex allergy status; Z88.2 Allergy status to sulfonamides; Z87.440 Personal history of urinary (tract) infections; Z86.79 Personal history of other diseases of the circulatory system
CPT/HCPCS: 96360; 96361; 99285; 36415; 93005; 80053; 83735; 84484; 85025; 85610; 85730; 81003; 71046; G0378

== ENCOUNTER → 2024-04-26 | Outpatient (CLI) | payer MEDICARE ==
--- NOTE | 2024-04-26 10:34 | US ---
EXAMINATION TYPE: US arterial LE multi level DATE OF EXAM: 04/26/2024 10:27 AM COMPARISONS: None. CLINICAL INDICATION: Female, 79 years old with history of G57.91 NEUROPATHY M79.604 PAIN R LEG; Neuro afshin, pain right leg. Raynaud's phenomenon without gangrene. TECHNIQUE: Systolic pressures were taken of the upper and lower extremity arteries with ankle-brachia l indices and toe brachial indices calculated bilaterally. History of: Smoker: Current Hypertension: Yes Diabetic: No Hyperlipidemia: Yes TIA/CVA: No Previous Vascular Surgery: No [place]: No Vascular Ulcers: No Claudication: *Yes, Right Gangrene: No FINDINGS: Doppler Waveforms: Right: Monophasic Left: Biphasic Pulse Volume Recording: Pressure Gradients: Brachial Artery systolic pressure: Right: 154 Left: 154 Posterior Tibial artery systolic pressure: Right: 69 Left: 151 Dorsalis Pedis artery systolic pressure: Right: 65 Left: 155 Toe artery systolic pressure: Right: 62 Left: 70 Ankle-Brachial Indices: Right: 0.45 Left: 1.01 Toe Brachial Indices: Right: 0.40 Left: 0.45 (Normal > 0.6; Mild 0.35 - 0.59, Moderate 0.12 - 0.34, Severe <0.12) IMPRESSION: FISH: Right: Severe Arterial Disease <0.5, Recommendation: Refer to vascular specialist Left: Normal 0.9 - 1.4 however mild distal peripheral vascular disease suggested with the toe brachia l index. [facility], , 04/26/2024 10:31 AM
== END | disposition home or self-care (01) ==
LOC: RADUSWWP 09:29
PROVIDERS: ATTEND Family Medicine
DX: G57.91 Unspecified mononeuropathy of right lower limb (principal); M79.604 Pain in right leg
CPT/HCPCS: 93923

== ENCOUNTER → 2024-07-12 | Outpatient (CLI) | payer MEDICARE ==
[2024-07-12 10:45] LABS: African American GFR (CKD) >90 (>60 ml/min/1.73 sqM); Blood Urea Nitrogen 23 mg/dL (7-17); Non-African American GFR(CKD) 82 (>60 ml/min/1.73 sqM)
--- NOTE | 2024-07-12 14:47 | CT ---
EXAMINATION TYPE: CT angio abd aorta w/Runoff DATE OF EXAM: 07/12/2024 COMPARISON: Prior CTA abdomen and pelvis March 23, 2019. Most recent FISH arch 08/10/2024 CLINICAL INDICATION: Female, 79 years old with history of I73.9 PERIPHERAL VASCULAR DISEASE, UNSPECIF IED, PERIPHERAL VASCULAR DISEASE, TECHNIQUE: CTA scan of the abdomen and pelvis is performed without and with IV Contrast, patient injected with 1 00 mL of Isovue 370., (none if empty) Oral contrast used: (none if empty) CT DLP: 816.5 mGycm, Automated exposure control for dose reduction was used. Three-D reconstructed images are created on a independent workstation and reviewed FINDINGS: VASCULAR: Noncontrast images show no suspicious hyperdense material to suggest intramural hematoma. N o significant stenosis in the celiac arteries or SMA. Severe mixed plaque at origin of right renal ar nancy without definitive significant stenosis. No significant stenosis of larger caliber left renal ar nancy. Infrarenal AAA up to 3.5 cm on current study. No extension into common iliac arteries. Moderate peripheral calcified plaque of the abdominal aorta. Some moderate noncalcified plaque in the aneurys m is noted. Moderate peripheral calcified plaque bilateral common iliac arteries without significant stenosis. Mild peripheral plaque left external iliac artery. No significant stenosis. Moderate to severe peripheral calcified plaque right common femoral artery without significant stenos is. There is moderate to severe mixed plaque in the mid to distal superficial femoral artery with sig nificant stenosis seen near coronal image 33. Mild to moderate peripheral plaque in the right popliteal artery without significant stenosis. There is Adequate bifurcation and subsequent trifurcation. Symmetric adequate three-vessel flow across midl ine into vessel flow in the mid to distal leg. Mild to moderate peripheral plaque in the left common femoral and superficial femoral artery. More mo derate peripheral plaque in the mid to distal left superficial femoral artery without significant shanon nosis. Mild peripheral plaque in the left popliteal artery. Adequate left-sided bifurcation and trifu rcation with good three-vessel flow within the proximal to mid leg and two-vessel flow in the distal leg. Past this level the Bolus is suboptimal. LUNG BASES: Mild scattered linear fibrotic change. LIVER/GB: No significant abnormality is appreciated. PANCREAS: No significant abnormality is seen. SPLEEN: No significant abnormality is seen. ADRENALS: No significant abnormality is seen. KIDNEYS: No significant abnormality is seen. BOWEL: Distal colonic diverticulosis is again seen. UTERUS: Uterus is surgically absent. LYMPH NODES: No greater than 1cm abdominal or pelvic lymph nodes are appreciated. OSSEOUS STRUCTURES: Moderate disc space narrowing with vacuum disc phenomenon at the L5-S1 level. LOWER EXTREMITIES: Degenerative changes of both knees are seen. OTHER: No significant additional abnormality is seen. IMPRESSION: 1. AAA now measuring up to 3.5 cm is identified. At minimum imaging follow-up in 2 years time is advi sed. Severe peripheral plaque in the distal right superficial femoral artery causing a hemodynamicall y significant stenosis at this level is confirmed. [facility], , 07/12/2024 2:44 PM
== END | disposition home or self-care (01) ==
LOC: RADCTMAIN 10:13
PROVIDERS: ATTEND Surgery
DX: I71.40 Abdominal aortic aneurysm, without rupture, unspecified (principal); I73.9 Peripheral vascular disease, unspecified
CPT/HCPCS: 82565; 84520; 75635; 36415; Q9967

== ENCOUNTER → 2024-08-20 | Day surgery (SDC) | payer MEDICARE ==
[2024-08-16 10:44] VITALS: BMI 20.9
[~2024-08-20] MED LIST: ALPRAZolam 0.25 MG TAB PO PRN; ALPRAZolam 0.5 MG TAB PO PRN; HEPARIN SODIUM,PORCINE (1 ML) 2,500 UNIT in SODIUM CHLORIDE 0.9% 250 ML IRRIGATION PRN; HEPARIN SODIUM,PORCINE 10,000 UNIT in SODIUM CHLORIDE 0.9% 1,000 ML IRRIGATION PRN; ZOLPIDEM 5 MG TAB PO PRN
[2024-08-20] MEDS: EMPTY BAG 1 BAG with SODIUM CHLORIDE 0.9% 1,000 ML IV SCH (08:45)
[2024-08-20 09:04] LABS: Basophils # (A) 0.05 10*3/uL (0.00-0.10); Basophils % (A) 0.5 %; Eosinophils # (A) 0.11 10*3/uL (0.04-0.35); Eosinophils % (A) 1.2 %; HCT 39.7 % (37.2-46.3); HGB 13.7 g/dL (12.0-15.0); Lymphocytes # (A) 2.22 10*3/uL (0.90-5.00); Lymphocytes % (A) 23.5 %; MCH 31.6 pg (27.0-32.0); MCHC 34.5 g/dL (32.0-37.0); MCV 91.5 fL (80.0-97.0); Mean Platelet Volume 11.3 fL (9.5-12.2); Monocytes # (A) 0.96 10*3/uL (0.20-1.00); Monocytes % (A) 10.2 %; Neutrophils # (A) 6.08 10*3/uL (1.80-7.70); Neutrophils % (A) 64.4 %; Platelet Count 257 10*3/uL (140-440); RBC 4.34 10*6/uL (4.10-5.20); RDW 12.2 % (11.5-14.5); WBC 9.44 10*3/uL (4.50-10.00)
[2024-08-20 09:16] LABS: African American GFR (CKD) >90 (>60 ml/min/1.73 sqM); Anion Gap 9 mmol/L; Blood Urea Nitrogen 22 mg/dL (7-17); Calcium 9.8 mg/dL (8.4-10.2); Carbon Dioxide 24 mmol/L (22-30); Chloride 102 mmol/L (98-107); Non-African American GFR(CKD) 84 (>60 ml/min/1.73 sqM); Sodium 135 mmol/L (137-145)
[2024-08-20 09:21] LABS: Glucose 104 mg/dL (74-99); Potassium 5.2 mmol/L (3.5-5.1)
[2024-08-20] MEDS: MIDAZOLAM 2 MG/2 ML VIAL IVP ONE (10:30)
[2024-08-20] MEDS: LIDOCAINE 1% INJ 10MG/ML (20 ML MDV) SQ ONE ×2 (10:31→10:32)
[2024-08-20] MEDS: fentaNYL (PF) 50 MCG/ML 2 ML AMP IVP ONE (10:31)
[2024-08-20] MEDS: HEPARIN SODIUM 1,000 UN/ML (10ML VL) IVP ONE (11:10)
[2024-08-20] MEDS: IOPAMIDOL-370 100ML BTL INJ ONE (11:27)
[2024-08-20] MEDS: IV FLUID CONTINUATION 1,000 ML IV ONE (11:28)
[2024-08-20] MEDS: CLOPIDOGREL 75 MG TAB PO STA (11:55)
--- NOTE | 2024-08-20 12:01 | P.OP ---
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 Postoperative Diagnosis: Same. Procedure(s) Performed: 1: Ultrasound-guided cannulation left common femoral artery. 2: Selective catheterization right superficial femoral artery. 3: Right femoral angiogram. 4: Atherectomy right superficial femoral artery. 5: Balloon dilation right superficial femoral artery. Implants: None. Anesthesia: local (2% Xylocaine along with 50 mcg of fentanyl and 2 mg of Versed administered intravenously for moderate conscious sedation purposes.) Surgeon: Real Perez Estimated Blood Loss (ml): 20 Urine output (ml): 0 Pathology: none sent Condition: stable Disposition: no change Indications for Procedure: Patient is a 79-year-old relatively healthy and active female who presented with a chief complaint of right calf claudication. Physical examination revealed a femoral pulse to be intact while the popliteal, DP and PT pulses were absent. CT angiogram had been performed which demonstrated high-grade although relatively focal right SFA stenosis which appeared amenable to percutaneous repair. We discussed continued medical care versus surgical bypass versus balloon dilation/atherectomy. Patient wished proceed with atherectomy. The procedure, risk and benefits were discussed. All questions were answered to patient's satisfaction. Description of Procedure: Patient was brought to the cardiac catheterization lab. Both groins were sterilely prepped and draped in the usual manner. She received 50 mcg of fentanyl and 2 mg of Versed intravenously for moderate conscious sedation purposes. Utilizing ultrasound the left common femoral artery was identified. 2% Xylocaine was utilized for local anesthesia of the tissues overlying this region. Through this anesthetized area and with the aid of ultrasound a micropuncture needle was utilized to cannulate the artery. Once cannulated soft-tipped guidewire was advanced into the artery. The needle was withdrawn and a micropuncture sheath and dilator advanced over the guidewire. Guidewire and dilator were withdrawn and through the micropuncture sheath a 0.035 inch guidewire was advanced. The micropuncture sheath was withdrawn and replaced with a 6 Pakistani sheath. Guidewire and catheter combination were then utilized in to cannulate the origin of the right iliac artery. Guidewire and catheter were advanced down into the superficial femoral artery. Right femoral angiogram was performed demonstrating the target lesion. A 0.035 inch glide advantage catheter was advanced through the catheter which was then withdrawn. The 6 Pakistani sheath was then exchanged for 6 Pakistani up and over sheath. Patient was administered 3000 units of heparin. Ryder advantage wire was removed and exchanged for 0.014 wire which was utilized to cross the lesion. Once across a silver Hawk atherectomy device was employed to perform atherectomy and a four-quadrant technique. Completion angiogram was performed demonstrating successful atherectomy with some residual stenosis noted. As such a 4 mm x 60 mm drug-eluting balloon catheter was advanced over the guidewire and utilized to post atherectomy dilate this segment. Completion angiogram was performed demonstrating good post procedure result with minimal residual stenosis (less than 20%) stenosis noted. Popliteal and tibial angiography was also performed demonstrating the popliteal artery as well as the anterior tibial and peroneal segments to be patent throughout their entire length. The posterior tibial artery did taper at the mid and distal segments. With the above findings noted the catheter was removed over guidewire and then a 6 Pakistani sheath was replaced. 6 Pakistani Angio-Seal device was then utilized to close the puncture arteriotomy with successful hemostasis. Patient tolerated procedure well and was taken to the outpatient surgical area in satisfactory and stable condition. Palpable dorsalis pedis pulse was noted at the completion of the procedure. Plan - Discharge Summary Discharge Rx Participant: No New Discharge Prescriptions: No Action Eszopiclone [Lunesta] 3 mg PO HS Ezetimibe [Zetia] 10 mg PO QAM Atorvastatin [Lipitor] 40 mg PO QAM Cholecalciferol [Vitamin D3 (125 Mcg = 5000 Iu)] 125 mcg PO QAM Discharge Medication List Atorvastatin [Lipitor] 40 mg PO QAM 10/07/17 [History] Eszopiclone [Lunesta] 3 mg PO HS 10/07/17 [History] Ezetimibe [Zetia] 10 mg PO QAM 10/07/17 [History] Cholecalciferol [Vitamin D3 (125 Mcg = 5000 Iu)] 125 mcg PO QAM 03/28/23 [History] Follow up Appointment(s)/Referral(s): Real Perez DO [Doctor of Osteopathic Medicine] - 08/30/24 10:45 am (KEEP YOUR FOLLOW UP APPOINTMENT ALREADY MADE WITH DR. CHAMPAGNE FOR AUGUST 30, 2024 AT 10:45. )
--- NOTE | 2024-08-20 13:47 | IR ---
EXAMINATION TYPE: IR captain/check airman femoral popliteal DATE OF EXAM: 08/20/2024 1:33 PM COMPARISON: Pre Operative Images if available both CT/MRI or plain film CLINICAL INDICATION: Female, 79 years old with history of Right Leg Pain; TECHNIQUE: IR captain/check airman femoral popliteal, multiple fluoroscopic images provided for procedure. DAP: mGym2 Gycm2 uGym2 cGycm2 or equivalent. FINDINGS: IMPRESSION: 1. No evidence for intraoperative complication. 2. Please see the operative/procedural note for further details. [facility], , 08/20/2024 1:45 PM
[2024-08-20 17:30] VITALS: BP 135/62; PULSE 68; RESP 16
== END ==
LOC: CATHCVL 08:15
PROVIDERS: ATTEND Surgery
DX: I70.211 Atherosclerosis of native arteries of extremities with intermittent claudication, right leg (principal); I10 Essential (primary) hypertension; E78.5 Hyperlipidemia, unspecified; F17.200 Nicotine dependence, unspecified, uncomplicated; Z79.82 Long term (current) use of aspirin; Z79.899 Other long term (current) drug therapy; Z88.0 Allergy status to penicillin; Z88.2 Allergy status to sulfonamides
CPT/HCPCS: 37225; 76937; 80048; 85025; C1894 ×2; C1760; C1769 ×5; C1714; J2250; J2003; J3010; J1644; Q9967